=== PATIENT | female | born 2000 | race Caucasian/White ===

== ENCOUNTER 2020-03-31 20:42 | Emergency (ER) | payer OTHER, SELFPAY ==
[2020-03-31 21:04] VITALS: BP 107/61; PULSE 100; RESP 16; TEMP 36.8; O2SAT 96; BMI 21.2
[2020-03-31 21:50] VITALS: BP 118/34; PULSE 73; RESP 16; TEMP 37.1; O2SAT 9
[2020-03-31 21:57] LABS: Basophils Percent Auto 0.4 % (0-2); Eosinophils Absolute Auto 0.1 X10*3/uL (0.0-0.4); Eosinophils Percent Auto 0.7 % (0-4); Hemoglobin 13.7 g/dl (12.0-16.0); Imm Gran Abs Auto 0.02 X10*3/uL (0.00-0.03); Imm Gran Pct Auto 0.3 % (0.0-0.4); Lymphocytes Absolute Auto 1.4 X10*3/uL (1.2-4.9); Lymphocytes Percent Auto 18.5 % (20-40); Mean Corpuscular HGB Conc 34.3 g/dl (31.0-35.0); Mean Corpuscular Hemoglobin 30.1 pg (27.0-33.0); Mean Corpuscular Volume 87.9 fL (80-98); Mean Platelet Volume 10.2 fL (9.4-12.3); Monocytes Absolute Auto 0.5 X10*3/uL (0.1-1.2); Neutrophils Absolute Auto 5.6 X10*3/uL (2.0-8.3); Neutrophils Percent Auto 73.1 % (45-73); Platelet Count 200 X10*3/uL (160-400); Red Blood Count 4.55 X10*6/uL (4.20-5.50); Red Cell Distribution Width 12.6 % (11.0-16.0); White Blood Count 7.7 X10*3/uL (4.8-10.8)
[2020-03-31 21:58] LABS: MANUAL DIFF FLAG NO
[2020-03-31 22:22] LABS: Alanine Aminotransferase 18 U/L (0-31); Albumin Level 4.6 g/dL (3.5-5.0); Alkaline Phosphatase 38 U/L (39-117); Anion Gap 17 (12-20); Aspartate Amino Transferase 21 U/L (5-31); Blood Urea Nitrogen 15 mg/dL (9-16); Calcium 9.4 mg/dL (8.4-10.2); Carbon Dioxide 22 mmol/L (22-29); Chloride 102 mmol/L (96-108); Estimated Glomerular Filt Rate > 60; Glucose Random 90 mg/dL (60-115); Potassium 3.7 mmol/l (3.3-5.1); Sodium 137 mmol/L (135-145); Total Protein 7.5 g/dL (6.5-8.0)
--- NOTE | 2020-04-01 00:43 | ED.NAVMDI ---
HPI - Nausea/Vomiting/Diarrhea General Chief complaint: Nausea/Vomiting/Diarrhea Stated complaint: vomiting, Time Seen by Provider: 04/01/20 00:40 Source: patient Mode of arrival: ambulatory Limitations: no limitations History of Present Illness HPI Narrative: Patient approximately 6 weeks primi, diagnosed today at urgent care center for vomiting for last 24 hours will take anything down went to urgent care center they checked the urine and she was positive for . Patient vomited about 15 times all day today feels weak no diarrhea no abdominal pain MD elicited complaint: nausea and vomiting Onset (ago): day(s) (1) Related Data Previous Rx's Medication Instructions Recorded ondansetron 4 mg PO Q6-8H PRN #20 tab 04/01/20 Allergies Allergy/AdvReac Type Severity Reaction Status Date / Time No Known Allergies Allergy Unverified 12/04/19 16:54 [No Known Allergies*] Review of Systems Review of Systems: Constitutional : No Weight loss, No Fever, No Chills ENT/Mouth : No sore throat, No Rhinorrhea Eyes: No Eye Pain, No Swelling Cardiovascular : No Chest Pain, no palpitations Respiratory : No Cough, No Sputum, no shortness of breath Gastrointestinal No Diarrhea, No abdominal Pain, no black stools Genitourinary : No Dysuria, No Urinary Frequency no vaginal bleed Musculoskeletal : No joint pain, No Myalgias, No Joint Swelling Skin : No Skin Lesions, No rash Neuro : No Weakness, No Numbness, No Dizziness, No Headache Psych : No Anxiety/Panic, No Depression Heme/Lymph: No Bruising, No Lymphadenopathy Endocrine : No Polyuria, No Polydipsia All other systems reviewed and are negative PMFSH Social History Social History Advance Directives: No Advance Directives Information Provided: No Physical Exam Vital Signs: Vital Signs: Last Vital Signs Temp 98.7 F 03/31/20 21:50 Pulse 73 03/31/20 21:50 Resp 16 03/31/20 21:50 BP 118/34 L 03/31/20 21:50 Pulse Ox 9 L 03/31/20 21:50 Body Mass Index 21.2 Appearance: Alert. Oriented X3. No acute distress. Eyes: Pupils equal, round and reactive to light. ENT: Pharynx normal. Moist oral mucosa Neck: Normal inspection. Neck supple. CVS: Normal heart rate and rhythm. Pulses normal. Respiratory: No respiratory distress. Breath sounds normal. Abdomen: Soft and nontender. Bowel sounds are present, no mass palpable, no CVA tenderness Skin: Skin warm and dry. Normal skin color. Normal skin turgor. Extremities: No lower extremity edema. Neuro: Oriented X 3. No motor deficit. No sensory deficit. MDM - Nausea/Vomiting/Diarrhea MDM Narrative Medical decision making narrative: Patient 1st first-trimester with vomiting labs look stable, urine shows ketones, will give IV fluids and IV Zofran patient feels better taking p.o. fluids now Lab Data Attestation: I reviewed the patient's lab results. Result diagrams: 04/01/20 01:16 03/31/20 21:49 Labs: Lab Results 03/31/20 03/31/20 04/01/20 Range/Units 21:49 21:49 01:16 WBC 7.7 10.3 (4.8-10.8) X10*3/uL RBC 4.55 4.52 (4.20-5.50) X10*6/uL Hgb 13.7 13.8 (12.0-16.0) g/dl Hct 40.0 39.8 (37-47) % MCV 87.9 88.1 (80-98) fL MCH 30.1 30.5 (27.0-33.0) pg MCHC 34.3 34.7 (31.0-35.0) g/dl RDW 12.6 12.5 (11.0-16.0) % Plt Count 200 207 (160-400) X10*3/uL MPV 10.2 10.1 (9.4-12.3) fL Immature Gran % (Auto) 0.3 0.3 (0.0-0.4) % Neut % (Auto) 73.1 H 87.1 H (45-73) % Lymph % (Auto) 18.5 L 7.9 L (20-40) % Brooks % (Auto) 7.0 4.4 (2-11) % Eos % (Auto) 0.7 0.0 (0-4) % Baso % (Auto) 0.4 0.3 (0-2) % Lymph # (Auto) 1.4 0.8 L (1.2-4.9) X10*3/uL Brooks # (Auto) 0.5 0.5 (0.1-1.2) X10*3/uL Eos # (Auto) 0.1 0.0 (0.0-0.4) X10*3/uL Baso # (Auto) 0.0 0.0 (0.0-0.2) X10*3/uL Abs Immat Gran (auto) 0.02 0.03 (0.00-0.03) X10*3/uL Absolute Neuts (auto) 5.6 8.9 H (2.0-8.3) X10*3/uL Absolute Nucleated RBC 0.000 0.000 (0.0-0.012) X10*3/uL Nucleated RBC % (auto) 0.0 0.0 (0.0-0.2) /100WBC Sodium 137 (135-145) mmol/L Potassium 3.7 (3.3-5.1) mmol/l Chloride 102 (96-108) mmol/L Carbon Dioxide 22 (22-29) mmol/L Anion Gap 17 (12-20) BUN 15 (9-16) mg/dL Creatinine 0.72 (0.5-1.4) mg/dL Estim Creat Clear Calc 104.0 Estimated GFR > 60 Random Glucose 90 (60-115) mg/dL Calcium 9.4 (8.4-10.2) mg/dL Total Bilirubin 1.0 (0.0-1.0) mg/dL AST 21 (5-31) U/L ALT 18 (0-31) U/L Alkaline Phosphatase 38 L (39-117) U/L Total Protein 7.5 (6.5-8.0) g/dL Albumin 4.6 (3.5-5.0) g/dL Urine Color Urine Appearance Urine pH (5.0-8.0) Ur Specific [place] (1.005-1.025) Urine Protein (NEG-TRACE) MG/DL Urine Glucose (UA) (NEG) MG/DL Urine Ketones (NEG) MG/DL Urine Blood (NEG) Urine Nitrite (NEG) Ur Leukocyte Esterase (NEG) Urine Test (NEGATIVE) 04/01/20 Range/Units 01:26 WBC (4.8-10.8) X10*3/uL RBC (4.20-5.50) X10*6/uL Hgb (12.0-16.0) g/dl Hct (37-47) % MCV (80-98) fL MCH (27.0-33.0) pg MCHC (31.0-35.0) g/dl RDW (11.0-16.0) % Plt Count (160-400) X10*3/uL MPV (9.4-12.3) fL Immature Gran % (Auto) (0.0-0.4) % Neut % (Auto) (45-73) % Lymph % (Auto) (20-40) % Brooks % (Auto) (2-11) % Eos % (Auto) (0-4) % Baso % (Auto) (0-2) % Lymph # (Auto) (1.2-4.9) X10*3/uL Brooks # (Auto) (0.1-1.2) X10*3/uL Eos # (Auto) (0.0-0.4) X10*3/uL Baso # (Auto) (0.0-0.2) X10*3/uL Abs Immat Gran (auto) (0.00-0.03) X10*3/uL Absolute Neuts (auto) (2.0-8.3) X10*3/uL Absolute Nucleated RBC (0.0-0.012) X10*3/uL Nucleated RBC % (auto) (0.0-0.2) /100WBC Sodium (135-145) mmol/L Potassium (3.3-5.1) mmol/l Chloride (96-108) mmol/L Carbon Dioxide (22-29) mmol/L Anion Gap (12-20) BUN (9-16) mg/dL Creatinine (0.5-1.4) mg/dL Estim Creat Clear Calc Estimated GFR Random Glucose (60-115) mg/dL Calcium (8.4-10.2) mg/dL Total Bilirubin (0.0-1.0) mg/dL AST (5-31) U/L ALT (0-31) U/L Alkaline Phosphatase (39-117) U/L Total Protein (6.5-8.0) g/dL Albumin (3.5-5.0) g/dL Urine Color PETER Urine Appearance HAZY Urine pH 6.0 (5.0-8.0) Ur Specific [place] >= 1.030 H (1.005-1.025) Urine Protein 1+ H (NEG-TRACE) MG/DL Urine Glucose (UA) NEG (NEG) MG/DL Urine Ketones >=80 (NEG) MG/DL Urine Blood NEG (NEG) Urine Nitrite NEG (NEG) Ur Leukocyte Esterase NEG (NEG) Urine Test POSITIVE H (NEGATIVE) Discharge Plan Discharge Clinical Impression: Hyperemesis gravidarum Patient Disposition: Home, Self-Care Instructions: Hyperemesis Gravidarum (ED) Additional Instructions: Drink plenty of fluids take medication for severe vomiting as advised. Follow-up with your PCP/Ob did Prescriptions: New ondansetron 4 mg tablet,disintegrating 4 mg PO Q6-8H PRN (Reason: Nausea And Vomiting) Qty: 20 RF: 0 Referrals: Delfino Chiu MD [Physician] - 1 week
[2020-04-01 01:20] LABS: MANUAL DIFF FLAG NO
[2020-04-01 01:21] LABS: Basophils Percent Auto 0.3 % (0-2); Hematocrit 39.8 % (37-47); Hemoglobin 13.8 g/dl (12.0-16.0); Imm Gran Abs Auto 0.03 X10*3/uL (0.00-0.03); Imm Gran Pct Auto 0.3 % (0.0-0.4); Lymphocytes Absolute Auto 0.8 X10*3/uL (1.2-4.9); Lymphocytes Percent Auto 7.9 % (20-40); Mean Corpuscular HGB Conc 34.7 g/dl (31.0-35.0); Mean Corpuscular Hemoglobin 30.5 pg (27.0-33.0); Mean Corpuscular Volume 88.1 fL (80-98); Mean Platelet Volume 10.1 fL (9.4-12.3); Monocytes Absolute Auto 0.5 X10*3/uL (0.1-1.2); Monocytes Percent Auto 4.4 % (2-11); Neutrophils Absolute Auto 8.9 X10*3/uL (2.0-8.3); Neutrophils Percent Auto 87.1 % (45-73); Platelet Count 207 X10*3/uL (160-400); Red Blood Count 4.52 X10*6/uL (4.20-5.50); Red Cell Distribution Width 12.5 % (11.0-16.0); White Blood Count 10.3 X10*3/uL (4.8-10.8)
[2020-04-01] MEDS: ondansetron HCL 4 MG/2 ML VIAL IVPUSH (01:22)
[2020-04-01 01:37] LABS: Appearance Urine HAZY; Color Urine AMBER; Glucose Urine UA NEG (NEG); Leukocyte Esterase Urine NEG (NEG); Nitrite Urine NEG (NEG); Specific Gravity - Urine >= 1.030 (1.005-1.025); Urine Blood NEG (NEG); Urine Ketones >=80 MG/DL (NEG); Urine Protein 1+ MG/DL (NEG-TRACE)
[2020-04-01 01:38] LABS: UPreg QC Valid YES; Urine Pregnancy POSITIVE (NEGATIVE)
[2020-04-01 01:56] LABS: Lipase 17 U/L (8-78)
[2020-04-01 01:59] LABS: Alanine Aminotransferase 18 U/L (0-31); Albumin Level 4.9 g/dL (3.5-5.0); Alkaline Phosphatase 38 U/L (39-117); Anion Gap 19 (12-20); Aspartate Amino Transferase 22 U/L (5-31); Bilirubin Direct 0.4 mg/dL (0.0-0.5); Bilirubin Total 0.9 mg/dL (0.0-1.0); Blood Urea Nitrogen 17 mg/dL (9-16); Calcium 9.6 mg/dL (8.4-10.2); Carbon Dioxide 22 mmol/L (22-29); Chloride 100 mmol/L (96-108); Creatinine Clr Calc Pharmacy 99.8; Estimated Glomerular Filt Rate > 60; Glucose Random 92 mg/dL (60-115); Potassium 3.5 mmol/l (3.3-5.1); Sodium 137 mmol/L (135-145)
[2020-04-01 01:59] LABS: Bacteria Urine 2+ /LPF; Mucus Urine 2+ /LPF; Squamous Epithelial Cell Urine 2+ /LPF
[2020-04-01 02:12] VITALS: BP 102/57; PULSE 68; RESP 16; O2SAT 100
[2020-04-01 02:29] LABS: HCG Quantitative 48814 mIU/mL
== END 2020-04-01 02:19 | disposition home or self-care (01) ==
PROVIDERS: Emergency Provider Internal Medicine
DX: O21.0 Mild hyperemesis gravidarum (principal); Z3A.01 Less than 8 weeks gestation of pregnancy
CPT/HCPCS: 36415; 80048; 80053; 80076; 81001; 81025; 83690; 84702; 85025; 96374; 99284; J2405

== ENCOUNTER → 2020-04-15 13:17 | Outpatient (BNVA) | payer OTHER, SELFPAY | PROVIDERS: PCP Internal Medicine Pulmonary Disease; Visit Provider Advanced Practice Midwife | DX: Z34.90 Encounter for supervision of normal pregnancy, unspecified, unspecified trimester (principal) | CPT/HCPCS: 99211 ==

== ENCOUNTER 2020-04-16 13:11 | Outpatient (REF) | payer OTHER, SELFPAY ==
--- NOTE | 2020-04-16 13:22 | US_ITS ---
EXAMINATION: OBSTETRICAL ULTRASOUND, FIRST TRIMESTER HISTORY: 19-year-old with secondary amenorrhea LMP: Unknown COMPARISON: 06/28/2017 TECHNIQUE: Real time transabdominal imaging with color and M-mode Doppler. FINDINGS: A single, live IUP CRL of 17.9 mm c/w 8.2wks is noted. Heart Rate: 170 beats per minute. Right ovary is within normal limits. Left ovary was not visible. GESTATIONAL AGE: 1. GA from LMP: N/A wks 2. GA from AUA: 8.2 wks ESTIMATED DATE OF DELIVERY: 1. CIARAN from LMP: N/A/ 2. CIARAN from AUA: 11/24/2020 US/US OB <= 14 weeks fetus IMPRESSION: 1. A single live IUP 2. CRL is consistent with 8 weeks and 2 days giving her an CIARAN of 11/24/2020. 3. Normal right ovary. Left ovary was not seen. 4. No free fluid in the cul-de-sac
== END 2020-04-16 13:12 | disposition home or self-care (01) ==
LOC: HO.US 13:11
PROVIDERS: Visit Provider Advanced Practice Midwife
DX: Z34.90 Encounter for supervision of normal pregnancy, unspecified, unspecified trimester (principal)
CPT/HCPCS: 76801

== ENCOUNTER → 2020-04-30 10:07 | Outpatient (BNVA) | payer OTHER, SELFPAY | PROVIDERS: Visit Provider Advanced Practice Midwife | CPT/HCPCS: 99212 ==

== ENCOUNTER 2020-05-07 10:21 | Outpatient (REF) | payer OTHER, SELFPAY ==
--- NOTE | ~2020-05-07 | US_ITS ---
EXAMINATION: OBSTETRICAL ULTRASOUND, FIRST TRIMESTER HISTORY: 19-year-old at 11.2 weeks of gestation NT screening COMPARISON: 04/16/2020 TECHNIQUE: Real time transabdominal imaging with color and M-mode Doppler. FINDINGS: A single, live IUP CRL of 48.5 mm c/w 11.5wks is noted. Heart Rate: 161 beats per minute. Normal yolk sac seen. NT was 0.9.mm. NB Present The embryo appears sonographically wnl for this GA. Both maternal ovaries are seen and appear normal. GESTATIONAL AGE: 1. Established GA: 11.2 wks 2. GA from AUA: 11.5 wks ESTIMATED DATE OF DELIVERY: 1. Established CIARAN: 11/24/2020 2. CIARAN from A: 11/21/2020 US/US OB 1T nuc measure IMPRESSION: 1. Single live IUP 2. Size equals dates 3. NT of the 0.9 mm 4. Small subchorionic hematoma MFM Consultation: I reviewed the ultrasound findings along with significance of NT measurement. The NT of less than 3mm is generally reassuring. However, the sensitivity for T21 detection is only 60%. I reviewed the availability of serum aneuploidy screening which includes cell-free DNA and placental protein based tests. I discussed the sensitivity, false-positive rate, and other limitations associated with each test. I also reviewed the availability of invasive diagnostic tests that are associated small but definite risk of miscarriage. We also reviewed the differences between screening tests and diagnostic tests. After our discussion, she opted for the First trimester screening that is based on cell-free DNA or non-invasive testing (NIPT). The result will be faxed to your office in approximately 7 days. A follow up at 18 weeks for survey has been scheduled. Thank you very much for this referral. Majority of this visit was spent reviewing her care and counselling her in face to face time: Time spent 20 min.
[2020-05-07 11:53] LABS: Basophils Percent Auto 0.4 % (0-2); Eosinophils Absolute Auto 0.3 X10*3/uL (0.0-0.4); Eosinophils Percent Auto 3.1 % (0-4); Hematocrit 35.4 % (37-47); Hemoglobin 12.2 g/dl (12.0-16.0); Imm Gran Abs Auto 0.03 X10*3/uL (0.00-0.03); Imm Gran Pct Auto 0.4 % (0.0-0.4); Lymphocytes Absolute Auto 1.3 X10*3/uL (1.2-4.9); Lymphocytes Percent Auto 16.6 % (20-40); MANUAL DIFF FLAG NO; Mean Corpuscular HGB Conc 34.5 g/dl (31.0-35.0); Mean Corpuscular Hemoglobin 30.2 pg (27.0-33.0); Mean Corpuscular Volume 87.6 fL (80-98); Mean Platelet Volume 10.2 fL (9.4-12.3); Monocytes Absolute Auto 0.5 X10*3/uL (0.1-1.2); Monocytes Percent Auto 6.5 % (2-11); Neutrophils Absolute Auto 5.8 X10*3/uL (2.0-8.3); Platelet Count 194 X10*3/uL (160-400); Red Blood Count 4.04 X10*6/uL (4.20-5.50); Red Cell Distribution Width 13.2 % (11.0-16.0); White Blood Count 7.9 X10*3/uL (4.8-10.8)
[2020-05-07 13:24] LABS: Syphilis Screen Nonreactive (Nonreactive)
[2020-05-07 14:53] LABS: Amphetamine Screen Urine Not Detected (Not Detect); Barbiturates, Urine Not Detected (Not Detect); Benzodiazepines Screen Urine Not Detected (Not Detect); Cannabinoid Screen Urine POSITIVE (Not Detect); Cocaine Screen Urine Not Detected (Not Detect); Opiate Screen Urine Not Detected (Not Detect); Phencyclidine Screen Urine Not Detected (Not Detect)
[2020-05-08 08:16] LABS: Rubella IgG Antibody 8.64 Index
[2020-05-08 08:42] LABS: Varicella IgG Antibody <135.00 index
[2020-05-10 03:52] LABS: HIV AB/AG Nonreactive (Nonreactive); HIV Num 1 0.07 S/CO (0.00-0.99); ~Hepatitis C Antibody Nonreactive (Nonreactive)
[2020-05-10 03:56] LABS: HBsAGNum1 0.13 S/CO (0.00-0.99); Hepatitis B Surface Antigen Negative (Negative)
== END 2020-05-07 10:22 | disposition home or self-care (01) ==
LOC: HO.US 10:21
PROVIDERS: Visit Provider Advanced Practice Midwife
DX: Z36.82 Encounter for antenatal screening for nuchal translucency (principal); Z34.90 Encounter for supervision of normal pregnancy, unspecified, unspecified trimester; Z3A.11 11 weeks gestation of pregnancy
CPT/HCPCS: 76813; 80307; 85025; 86762; 86780; 86787; 86803; 86850; 86900; 86901; 87086; 87340; 87389

== ENCOUNTER 2020-05-14 08:09 | Outpatient (REF) | payer OTHER, SELFPAY ==
[2020-05-15 16:57] LABS: C. trachomatis RNA TMA NOT DETECTED (NOT DETECTED); N. gonorrhoeae RNA TMA NOT DETECTED (NOT DETECTED)
== END 2020-05-14 08:10 | disposition home or self-care (01) ==
LOC: HO.LAB 08:09
PROVIDERS: Visit Provider Advanced Practice Midwife
DX: Z34.01 Encounter for supervision of normal first pregnancy, first trimester (principal)
CPT/HCPCS: 36415; 81003; 87491; 87591; 99212

== ENCOUNTER 2020-05-22 14:30 | Emergency (ER) | payer OTHER, SELFPAY ==
[2020-05-22 14:37] VITALS: BP 113/63; BP 120/60; PULSE 82; PULSE 92; RESP 14; TEMP 36.8; O2SAT 100; O2SAT 98; BMI 18.8
--- NOTE | 2020-05-22 15:16 | ECG_ITS ---
Test Reason : SYNCOPY Blood Pressure : / mmHG Vent. Rate : 065 BPM Atrial Rate : 065 BPM P-R Int : 158 ms QRS Dur : 082 ms QT Int : 388 ms P-R-T Axes : 062 087 053 degrees QTc Int : 403 ms Normal sinus rhythm with sinus arrhythmia Normal ECG No previous ECGs available Referred By: Mansi Cobian Electronically Signed By:KEYA MENA
--- NOTE | 2020-05-22 15:35 | ED.SYNCOPE ---
HPI - Syncope General Chief Complaint: Syncope Stated Complaint: NEAR SYNCOPE, POC 68 Time Seen by Provider: 05/22/20 14:48 Source: patient and EMS Mode of arrival: EMS History of Present Illness HPI narrative: 19-year-old female at 13 weeks gestation BIBA for near syncopal episode at work [employer]. 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 Admits to similar episodes in the past when does not enough food. Reports eating cinnamon buns this morning, however nothing since. Reports symptomatic improvement at present. Admits to mild headache, denies visual change/loss now, CP/SOB, abdominal pain, nausea/vomiting, vaginal bleeding, vaginal discharge, dysuria/hematuria MD complaint: felt faint Onset (ago): hour(s) Related Data Previous Rx's Medication Instructions Recorded ondansetron 4 mg PO Q6-8H PRN #20 tab 04/01/20 vitamins with calcium 1 tab PO DAILY 30 Days #30 tab 04/15/20 no.72-iron 29 mg-folic acid 1 mg tablet Allergies Allergy/AdvReac Type Severity Reaction Status Date / Time No Known Allergies Allergy Verified 05/14/20 08:19 [No Known Allergies*] Review of Systems Review of Systems: Constitutional: No Fever, No Chills Eyes: + Vision Changes (resolved) Cardiovascular: No Chest Pain, No SOB Respiratory: No Cough Gastrointestinal: No Nausea, No Vomiting, No Diarrhea, No Constipation, No Abdominal pain Genitourinary: No irregular bleeding, No Dysuria, No Urinary Frequency, No Hematuria Musculoskeletal: No joint pain, No Myalgias, No Joint Swelling Skin: No Skin Lesions, No rash Neuro: No Weakness, No Loss of Consciousness, +lightheadedness, +mild Headache Yes all other systems are reviewed and are negative [facility] Past Medical History Attestation statement: The following information was validated with the patient. Medical History (Updated 05/22/20 @ 16:03 by ROCHELLE Gates) No significant past medical history Family History Family History Maternal Grandmother No problems noted. Maternal Grandfather Cancer Social History Social History Household Members: Significant Other and Family Alcohol intake: never Smoking Status: Never smoker Use of substances other than those prescribed or required for medical reasons: Yes Substance Use Type: Marijuana Last Used Substance: Weeks (ago) Advance Directives: No Advance Directives Information Provided: Yes Physical Exam Vital Signs: Vital Signs: Last Vital Signs Temp 98.2 F 05/22/20 14:37 Pulse 82 05/22/20 14:37 Resp 14 05/22/20 14:37 BP 113/63 05/22/20 14:37 Pulse Ox 98 05/22/20 14:37 Body Mass Index 18.8 Const: General: cooperative, healthy appearing, comfortable, no acute distress, well developed, alert and awake Orientation/consciousness: patient oriented x3 Limitations: no limitations HENMT: Head: Yes normal to inspection Ears: hearing grossly normal bilaterally General nose exam: Normal external nose present Face and sinus: Yes normal facial exam Eyes: General: appearance normal, both eyes and all related structures Pupils: Dilated pupils bilaterally and reactive EOM: EOMs intact bilaterally Neck: Neck: Yes normal visual inspection and Yes no meningeal signs Resp: Effort & Inspection: normal respiratory effort Auscultation: clear to auscultation bilaterally, no rales, no rhonchi and no wheezes Cardio: Rate: regular rate Heart sounds: S1 normal heart sound present and S2 normal heart sound present GI: Inspection: Yes normal to inspection Palpation (GI): Soft to palpation, nontender, no guarding and not rigid : General: Yes no CVA tenderness Back/Spine/Pelvis: Back: no CVA tenderness Skin: Rashes: no rashes Wounds: no wounds Neuro: General: patient oriented x3, tone normal, moves all extremities, no meningeal signs, no focal motor deficits and CN's II-XI intact bilaterally Gait exam (Neuro): Normal gait present Motor exam (neuro): 5/5 motor strength present throughout, Pronator motor function not present and no tremor noted Coordination: [id number] test normal and Romberg test negative Extrem: General: Yes normal to inspection, Yes no pedal edema and Yes no calf tenderness Course Course Course Narrative: -no leukocytosis. H&H stable. Troponin negative -UA negative, no ketones -1700--ED care transferred to WIRE LOOP MACHINE OPERATOR Sweetie pending remaining labs orthostatic vital signs, and re-evaluation MDM - Syncope MDM Narrative Medical decision making narrative: 19-year-old female at 13 weeks gestation BIBA for near syncopal episode at work [employer]. 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 On exam VSS, NAD/well-appearing, reports symptomatic improvement present, no focal neuro deficits, abdomen soft/nontender. Denies related complaints. Concern for vasovagal near syncope/dehydration. Rule out metabolic abnormalities. Unlikely PE/ACS Plan: EKG, labs, UA, IVF, orthostatics, re-evaluation Differential Diagnosis Differential diagnosis: Likely syncope due to orthostatic hypotension, vasovagal syncope and dehydration Medical Records Attestation: I reviewed the patient's medical records. Lab Data Attestation: I reviewed the patient's lab results. Result diagrams: 05/22/20 15:39 05/22/20 15:39 Labs: Lab Results 05/22/20 05/22/20 05/22/20 Range/Units 15:27 15:27 15:39 WBC 8.8 (4.8-10.8) X10*3/uL RBC 3.84 L (4.20-5.50) X10*6/uL Hgb 11.7 L (12.0-16.0) g/dl Hct 34.6 L (37-47) % MCV 90.1 (80-98) fL MCH 30.5 (27.0-33.0) pg MCHC 33.8 (31.0-35.0) g/dl RDW 13.8 (11.0-16.0) % Plt Count 173 (160-400) X10*3/uL MPV 10.7 (9.4-12.3) fL Immature Gran % (Auto) 0.3 (0.0-0.4) % Neut % (Auto) 75.9 H (45-73) % Lymph % (Auto) 14.5 L (20-40) % Johnson % (Auto) 6.6 (2-11) % Eos % (Auto) 2.4 (0-4) % Baso % (Auto) 0.3 (0-2) % Lymph # (Auto) 1.3 (1.2-4.9) X10*3/uL Johnson # (Auto) 0.6 (0.1-1.2) X10*3/uL Eos # (Auto) 0.2 (0.0-0.4) X10*3/uL Baso # (Auto) 0.0 (0.0-0.2) X10*3/uL Abs Immat Gran (auto) 0.03 (0.00-0.03) X10*3/uL Absolute Neuts (auto) 6.7 (2.0-8.3) X10*3/uL Absolute Nucleated RBC 0.000 (0.0-0.012) X10*3/uL Nucleated RBC % (auto) 0.0 (0.0-0.2) /100WBC Hold Blue Top Troponin I High Sens (<3.5-17.0) ng/L Urine Color YELLOW Urine Appearance HAZY Urine pH 5.5 (5.0-8.0) Ur Specific [place] >= 1.030 H (1.005-1.025) Urine Protein NEG (NEG-TRACE) MG/DL Urine Glucose (UA) NEG (NEG) MG/DL Urine Ketones NEG (NEG) MG/DL Urine Blood NEG (NEG) Urine Nitrite NEG (NEG) Ur Leukocyte Esterase NEG (NEG) Urine Opiates Screen Not Detected (Not Detect) Ur Barbiturates Screen Not Detected (Not Detect) Ur Phencyclidine Scrn Not Detected (Not Detect) Ur Amphetamines Screen Not Detected (Not Detect) U Benzodiazepines Scrn Not Detected (Not Detect) Urine Cocaine Screen Not Detected (Not Detect) U Marijuana (THC) Screen Not Detected (Not Detect) 05/22/20 05/22/20 Range/Units 15:39 15:39 WBC (4.8-10.8) X10*3/uL RBC (4.20-5.50) X10*6/uL Hgb (12.0-16.0) g/dl Hct (37-47) % MCV (80-98) fL MCH (27.0-33.0) pg MCHC (31.0-35.0) g/dl RDW (11.0-16.0) % Plt Count (160-400) X10*3/uL MPV (9.4-12.3) fL Immature Gran % (Auto) (0.0-0.4) % Neut % (Auto) (45-73) % Lymph % (Auto) (20-40) % Johnson % (Auto) (2-11) % Eos % (Auto) (0-4) % Baso % (Auto) (0-2) % Lymph # (Auto) (1.2-4.9) X10*3/uL Johnson # (Auto) (0.1-1.2) X10*3/uL Eos # (Auto) (0.0-0.4) X10*3/uL Baso # (Auto) (0.0-0.2) X10*3/uL Abs Immat Gran (auto) (0.00-0.03) X10*3/uL Absolute Neuts (auto) (2.0-8.3) X10*3/uL Absolute Nucleated RBC (0.0-0.012) X10*3/uL Nucleated RBC % (auto) (0.0-0.2) /100WBC Hold Blue Top SEE NOTE Troponin I High Sens < 3.5 (<3.5-17.0) ng/L Urine Color Urine Appearance Urine pH (5.0-8.0) Ur Specific [place] (1.005-1.025) Urine Protein (NEG-TRACE) MG/DL Urine Glucose (UA) (NEG) MG/DL Urine Ketones (NEG) MG/DL Urine Blood (NEG) Urine Nitrite (NEG) Ur Leukocyte Esterase (NEG) Urine Opiates Screen (Not Detect) Ur Barbiturates Screen (Not Detect) Ur Phencyclidine Scrn (Not Detect) Ur Amphetamines Screen (Not Detect) U Benzodiazepines Scrn (Not Detect) Urine Cocaine Screen (Not Detect) U Marijuana (THC) Screen (Not Detect) ECG Data Attestation: I personally reviewed and interpreted this ECG as follows: ECG interpretation date: 05/22/20 ECG interpretation time: 15:23 Interpretation: EKG normal sinus rhythm with a rate of 65. No STEMI. Nonischemic Discharge Plan Discharge Clinical Impression: Near syncope Instructions: Near Syncope (ED) Additional Instructions: Your blood work was reassuring today in the ED It is important that you are staying hydrated at home and drinking plenty of fluids, and eating plenty of meals. Eat small meals more frequently throughout the day. Follow-up with her OBGYN If you develop abdominal pain, vaginal bleeding, vaginal discharge, pass out, chest pain, or shortness of breath return to the ED immediately Prescriptions: No Action ondansetron 4 mg tablet,disintegrating 4 mg PO Q6-8H PRN (Reason: Nausea And Vomiting) Qty: 20 RF: 0 Plus 29 mg iron- 1 mg tablet 1 tab PO DAILY 30 Days Qty: 30 RF: 11 Referrals: Janel Gray CNM [Certified Nurse [employer]] - 2 days
[2020-05-22 15:39] LABS: Glucose Urine UA NEG (NEG); Leukocyte Esterase Urine NEG (NEG); Nitrite Urine NEG (NEG); PH 5.5 (5.0-8.0); Specific Gravity - Urine >= 1.030 (1.005-1.025); Urine Blood NEG (NEG); Urine Ketones NEG (NEG); Urine Protein NEG (NEG-TRACE)
[2020-05-22 15:45] LABS: MANUAL DIFF FLAG NO
[2020-05-22 15:45] LABS: Appearance Urine HAZY; Color Urine YELLOW
[2020-05-22 15:48] LABS: Basophils Percent Auto 0.3 % (0-2); Eosinophils Absolute Auto 0.2 X10*3/uL (0.0-0.4); Eosinophils Percent Auto 2.4 % (0-4); Hematocrit 34.6 % (37-47); Hemoglobin 11.7 g/dl (12.0-16.0); Imm Gran Abs Auto 0.03 X10*3/uL (0.00-0.03); Imm Gran Pct Auto 0.3 % (0.0-0.4); Lymphocytes Absolute Auto 1.3 X10*3/uL (1.2-4.9); Lymphocytes Percent Auto 14.5 % (20-40); Mean Corpuscular HGB Conc 33.8 g/dl (31.0-35.0); Mean Corpuscular Hemoglobin 30.5 pg (27.0-33.0); Mean Corpuscular Volume 90.1 fL (80-98); Mean Platelet Volume 10.7 fL (9.4-12.3); Monocytes Absolute Auto 0.6 X10*3/uL (0.1-1.2); Monocytes Percent Auto 6.6 % (2-11); Neutrophils Absolute Auto 6.7 X10*3/uL (2.0-8.3); Neutrophils Percent Auto 75.9 % (45-73); Platelet Count 173 X10*3/uL (160-400); Red Blood Count 3.84 X10*6/uL (4.20-5.50); Red Cell Distribution Width 13.8 % (11.0-16.0); White Blood Count 8.8 X10*3/uL (4.8-10.8)
[2020-05-22] MEDS: 0.9 % Sodium Chloride 1,000 ML 999 ML IVCONT (15:48)
[2020-05-22 16:36] LABS: Troponin-I High Sensitivity < 3.5 ng/L (<3.5-17.0)
[2020-05-22 16:42] LABS: Amphetamine Screen Urine Not Detected (Not Detect); Barbiturates, Urine Not Detected (Not Detect); Benzodiazepines Screen Urine Not Detected (Not Detect); Cannabinoid Screen Urine Not Detected (Not Detect); Cocaine Screen Urine Not Detected (Not Detect); Opiate Screen Urine Not Detected (Not Detect); Phencyclidine Screen Urine Not Detected (Not Detect)
[2020-05-22 17:11] LABS: Anion Gap 12 (12-20); Blood Urea Nitrogen 9 mg/dL (9-16); Calcium 7.9 mg/dL (8.4-10.2); Carbon Dioxide 23 mmol/L (22-29); Chloride 106 mmol/L (96-108); Estimated Glomerular Filt Rate > 60; Glucose Random 65 mg/dL (60-115); Magnesium 1.7 mg/dL (1.6-2.6); Potassium 3.6 mmol/L (3.3-5.1); Sodium 137 mmol/L (135-145)
[2020-05-22 17:29] VITALS: BP 96/53; PULSE 69
--- NOTE | 2020-05-22 17:29 | PC.NURSE ---
confirmed HCG is able to be tested off specimen sample sent down, awaiting results.
[2020-05-22 17:30] VITALS: BP 98/60; PULSE 74
[2020-05-22 17:31] VITALS: BP 102/60; PULSE 73
[2020-05-22 17:32] VITALS: BP 102/60; PULSE 72; RESP 15; TEMP 36.7; O2SAT 99
== END 2020-05-22 18:24 | disposition home or self-care (01) ==
PROVIDERS: Physician Assistant; Emergency Provider Internal Medicine
DX: O26.891 Other specified pregnancy related conditions, first trimester (principal); R55 Syncope and collapse; Z3A.13 13 weeks gestation of pregnancy; O99.321 Drug use complicating pregnancy, first trimester; F12.90 Cannabis use, unspecified, uncomplicated
CPT/HCPCS: 36415; 80048; 80307; 81003; 83735; 84484; 84702; 85025; 93005; 96360; 99284

== ENCOUNTER → 2020-06-15 08:57 | Outpatient (BNVA) | payer OTHER, SELFPAY | PROVIDERS: Visit Provider Advanced Practice Midwife | DX: Z34.02 Encounter for supervision of normal first pregnancy, second trimester (principal); Z3A.17 17 weeks gestation of pregnancy | CPT/HCPCS: 81003 ==

== ENCOUNTER 2020-06-25 10:32 | Outpatient (REF) | payer OTHER, SELFPAY ==
--- NOTE | ~2020-06-25 | US_ITS ---
EXAMINATION: US OBSTETRICAL CLINICAL INFORMATION: 19-year-old at 18.2 weeks of gestation Suspected anomaly COMPARISON: 05/07/2020 TECHNIQUE: Real-time transabdominal ultrasound was performed using C1-5 megahertz transducer. FINDINGS: A single, active, fetus is seen in vertex presentation. The placenta is posterior without previa, and the amniotic fluid volume is wnl. MEASUREMENTS: 1. Biparietal Diameter: 4.2 cm; 18.5 wks 2. Occipital Frontal Diameter: 5.4 cm 3. Head Circumference: 15.7 cm; 18.5 wks 4. Abdominal Circumference: 13.2 cm; 18.6 wks 5. Femur Length: 2.6 cm; 18.0 wks 6. Humerus Length: 2.7 cm; 18.5 wks 7. Tibia Length: 2.3 cm; 18.1 wks 8. Ulna Length: 2.3 cm; 18.1 wks 9. Lateral ventricle: 0.61 cm 10. Cerebellum: 1.82 cm; 19.0 wks 11. Cisterna Magna: 0.36 cm 12. Nuchal Fold: 2.8 mm 13. Heart Rate: 139 beats per minute Rt ovary: normal Lt ovary: normal Cervical length 4.1 cm on T/A. GESTATIONAL AGE: 1. Established GA: 18.2 wks 2. GA from [facility]: 18.4 wks ESTIMATED DATE OF DELIVERY: 1. Established CIARAN: 11/24/2020 2. CIARAN from [facility]: 11/22/2020 ANATOMY: The visualized anatomy includes but not limited to: 1. Cranium: Normal 2. Intracranial anatomy: cavum septum pellucidi, lateral ventricles, choroid plexus, cerebellum, posterior fossa, third and fourth ventricles. 3. face: orbits, lip/palate, profile, nasal bone 4. Heart: four-chamber view of the heart, ventricular septum, foramen ovale, pulmonary vein, left and right outflow tracts, three-vessel view, 3 vessel trachea view, aortic and ductal arches, situs.. 5. Diaphragm: Normal 6. Abdominal wall: Normal 7. Cord Insertion: Normal 8. Spine: Cervical, thoracic, lumbar, sacral. 9. Stomach: Normal size and shape 10. Right Kidney: Normal 11. Left Kidney: Normal 12. 3 vessel cord: Normal 13. Upper extremity: Open hands, fifth digit. 14. Lower extremity: Tibia, fibula, bilateral feet. 15. Bladder: Normal 16. Genitalia: Female, patient aware US/US OB /maternal detail IMPRESSION: 1. Single, living, intrauterine with appropriate biometry. 2. Normal survey DISCUSSION: I reviewed today's ultrasound findings. We discussed the limitations of ultrasound in diagnosing aneuploidy and other congenital abnormalities. I reviewed the differences between screening test and diagnostic test. Amniocentesis was discussed and declined. She was informed that the baseline incidence of congenital abnormalities is approximately 3-5%. Not all these conditions are diagnosable in utero. RECOMMENDATIONS: 1. Additional ultrasound has not been scheduled. Thank you for allowing me to participate in her care. Total time 20 minutes. The time spent was devoted to counseling the patient about the disease and diagnosis, coordinating care including reviewing her records, pertinent lab data and studies, as well as discussing diagnostic evaluation and workup, plan therapeutic interventions and future disposition of care. This includes any additional research needed to obtain further information in formulating the plan of care of this patient. This note was generated with a voice recognition program. Please excuse any errors which may have been overlooked during my review of this note. Sometimes these errors may affect the content or meaning of a given sentence.
== END 2020-06-25 10:33 | disposition home or self-care (01) ==
LOC: HO.US 10:32
PROVIDERS: Visit Provider Advanced Practice Midwife
DX: Z34.02 Encounter for supervision of normal first pregnancy, second trimester (principal)
CPT/HCPCS: 76811

== ENCOUNTER → 2020-07-13 08:46 | Outpatient (BNVA) | payer OTHER, SELFPAY | PROVIDERS: Visit Provider Advanced Practice Midwife | DX: Z34.02 Encounter for supervision of normal first pregnancy, second trimester (principal); Z3A.21 21 weeks gestation of pregnancy | CPT/HCPCS: 81003; 99212 ==

== ENCOUNTER 2020-08-10 08:41 | Outpatient (REF) | payer OTHER, SELFPAY ==
[2020-08-10 11:02] LABS: Glucose 1 Hour PP 50gm Dose 72 mg/dL (60-140)
[2020-08-10 11:10] LABS: Hematocrit 31.6 % (37-47); Hemoglobin 10.4 g/dl (12.0-16.0); Mean Corpuscular HGB Conc 32.9 g/dl (31.0-35.0); Mean Corpuscular Hemoglobin 30.3 pg (27.0-33.0); Mean Corpuscular Volume 92.1 fL (80-98); Mean Platelet Volume 10.4 fL (9.4-12.3); Platelet Count 180 X10*3/uL (160-400); Red Blood Count 3.43 X10*6/uL (4.20-5.50); Red Cell Distribution Width 13.2 % (11.0-16.0); White Blood Count 10.3 X10*3/uL (4.8-10.8)
[2020-08-11 08:03] LABS: Syphilis Screen Nonreactive (Nonreactive)
== END 2020-08-10 08:42 | disposition home or self-care (01) ==
LOC: HO.LAB 08:41
PROVIDERS: Visit Provider Advanced Practice Midwife
DX: O99.342 Other mental disorders complicating pregnancy, second trimester (principal); F41.9 Anxiety disorder, unspecified; Z3A.25 25 weeks gestation of pregnancy
CPT/HCPCS: 36415; 81003; 85027; 86780; 99212

== ENCOUNTER → 2020-08-31 08:39 | Outpatient (BNVA) | payer OTHER, SELFPAY | PROVIDERS: Visit Provider Advanced Practice Midwife | DX: O36.5930 Maternal care for other known or suspected poor fetal growth, third trimester, not applicable or unspecified (principal); Z13.31 Encounter for screening for depression; Z3A.28 28 weeks gestation of pregnancy | CPT/HCPCS: 81003; 99212 ==

== ENCOUNTER 2020-09-03 10:03 | Outpatient (REF) | payer OTHER, SELFPAY ==
--- NOTE | ~2020-09-03 | US_ITS ---
EXAMINATION: OBSTETRICAL ULTRASOUND, Follow up HISTORY: 20-year-old at the 28.3 weeks of gestation Size date discrepancy COMPARISON: 06/25/2020 TECHNIQUE: Real time transabdominal imaging with color and M-mode Doppler. PRESENTATION: Vertex PLACENTA LOCATION: Posterior without previa AMNIOTIC FLUID: D CARBON PASTE MIXER OPERATOR 5.2 cm MEASUREMENTS: 1. Biparietal Diameter: 7.0 cm; 28.1 wks 2. Head Circumference: 27.3 cm; 29.6 wks 3. Abdominal Circumference: 23.5 cm; 27.6 wks 4. Femur Length: 5.2 cm; 27.6 wks 5. Heart Rate: 163 beats per minute WEIGHT: EFW: 1116 2 grams (2 lbs 9 oz) -- 28 %. GESTATIONAL AGE: 1. Established GA: 28.2 wks 2. GA from AUA: 20.3 wks ESTIMATED DATE OF DELIVERY: 1. Established CIARAN: 12/14/2020 2. CIARAN from AUA: 11/23/2020 US/US OB follow up IMPRESSION: 1. A single active fetus is in vertex presentation 2. Size equals dates 3. Normal amniotic fluid volume Thank you very much for this referral. This note was generated with a voice recognition program. Please excuse any errors which may have been overlooked during my review of this note. Sometimes these errors may affect the content or meaning of a given sentence.
== END 2020-09-03 10:04 | disposition home or self-care (01) ==
LOC: HO.US 10:03
PROVIDERS: Visit Provider Advanced Practice Midwife
DX: O36.5930 Maternal care for other known or suspected poor fetal growth, third trimester, not applicable or unspecified (principal)
CPT/HCPCS: 76816

== ENCOUNTER → 2020-09-14 08:48 | Outpatient (BNVA) | payer OTHER, SELFPAY | PROVIDERS: Visit Provider Advanced Practice Midwife | DX: Z34.93 Encounter for supervision of normal pregnancy, unspecified, third trimester (principal); Z3A.30 30 weeks gestation of pregnancy | CPT/HCPCS: 81003; 90471; 90715; 99212 ==

== ENCOUNTER → 2020-09-28 08:40 | Outpatient (BNVA) | payer OTHER, SELFPAY | PROVIDERS: Visit Provider Advanced Practice Midwife | DX: Z34.93 Encounter for supervision of normal pregnancy, unspecified, third trimester (principal); Z3A.32 32 weeks gestation of pregnancy | CPT/HCPCS: 81003; 99212 ==

== ENCOUNTER → 2020-10-12 08:35 | Outpatient (BNVA) | payer OTHER, SELFPAY | PROVIDERS: Visit Provider Advanced Practice Midwife | DX: Z34.03 Encounter for supervision of normal first pregnancy, third trimester (principal); Z3A.34 34 weeks gestation of pregnancy | CPT/HCPCS: 99212 ==

== ENCOUNTER 2020-10-18 15:51 | Outpatient (REF) | payer OTHER, SELFPAY | END 2020-10-18 15:52 | disposition home or self-care (01) | LOC: HO.LAB 15:51 | PROVIDERS: Visit Provider Internal Medicine | DX: Z20.822 Contact with and (suspected) exposure to COVID-19 (principal) | CPT/HCPCS: C9803; U0003; U0005 ==

== ENCOUNTER 2020-10-27 10:41 | Outpatient (REF) | payer OTHER, SELFPAY ==
[2020-10-27 14:29] LABS: CT PCR NOT DETECTED (Not Detect.); NG PCR NOT DETECTED (Not Detect.)
== END 2020-10-27 10:42 | disposition home or self-care (01) ==
LOC: HO.LAB 10:41
PROVIDERS: Visit Provider Obstetrics & Gynecology
DX: O99.343 Other mental disorders complicating pregnancy, third trimester (principal); F41.9 Anxiety disorder, unspecified; Z3A.36 36 weeks gestation of pregnancy
CPT/HCPCS: 87081; 87491; 87591; 99212

== ENCOUNTER → 2020-11-08 10:46 | Outpatient (BNVA) | payer OTHER, SELFPAY | PROVIDERS: Visit Provider Advanced Practice Midwife | DX: Z34.03 Encounter for supervision of normal first pregnancy, third trimester (principal); Z3A.37 37 weeks gestation of pregnancy | CPT/HCPCS: 81003; 99212 ==

== ENCOUNTER → 2020-11-15 09:17 | Outpatient (BNVA) | payer OTHER, SELFPAY | PROVIDERS: Visit Provider Advanced Practice Midwife | DX: Z34.03 Encounter for supervision of normal first pregnancy, third trimester (principal); Z3A.38 38 weeks gestation of pregnancy | CPT/HCPCS: 81003; 99212 ==

== ENCOUNTER → 2020-11-26 09:53 | Outpatient (BNVA) | payer OTHER, SELFPAY | PROVIDERS: Visit Provider Advanced Practice Midwife | DX: O48.0 Post-term pregnancy (principal); O98.813 Other maternal infectious and parasitic diseases complicating pregnancy, third trimester; B37.3 Candidiasis of vulva and vagina; Z3A.40 40 weeks gestation of pregnancy | CPT/HCPCS: 81003; 99212 ==

== ENCOUNTER → 2020-11-30 10:05 | Outpatient (BNVA) | payer OTHER, SELFPAY | PROVIDERS: Visit Provider Obstetrics & Gynecology | DX: O48.0 Post-term pregnancy (principal); Z3A.41 41 weeks gestation of pregnancy | CPT/HCPCS: 59025; 99212 ==

== ENCOUNTER 2020-12-03 10:16 | Outpatient (REF) | payer OTHER, SELFPAY ==
--- NOTE | ~2020-12-03 | US_ITS ---
EXAMINATION: OBSTETRICAL ULTRASOUND, Follow up HISTORY: 20-year-old at 41.2 weeks of gestation Size date discrepancy Post term COMPARISON: 09/03/2020 TECHNIQUE: Real time transabdominal imaging with color and M-mode Doppler. PRESENTATION: Vertex PLACENTA LOCATION: Posterior without previa AMNIOTIC FLUID: THOMAS 5.7 cm MEASUREMENTS: 1. Biparietal Diameter: 9.4 cm; 38.2 wks 2. Head Circumference: 34.7 cm; 40.3 wks 3. Abdominal Circumference: 35.8 cm; 39.5 wks 4. Femur Length: 7.8 cm; 39.6 wks 5. Heart Rate: 146 beats per minute WEIGHT: EFW: 3835 grams (8 lbs 7 oz) -- BIOPHYSICAL PROFILE: Motion: 2 Tone: 2 Breathin Amniotic Fluid: 2 Total score: 8/8 GESTATIONAL AGE: 1. Established GA: 41.2 wks 2. GA from AUA: 39.4 wks ESTIMATED DATE OF DELIVERY: 1. Established CIARAN: 11/24/2020 2. CIARAN from AUA: 12/06/2020 US/US OB follow up IMPRESSION: 1. A single active fetus is in vertex presentation 2. Size equals dates 3. BPP score of 8/8 I reviewed today's ultrasound findings as well as risks and benefits of expectant management versus induction of labor between 41 and 42 weeks of gestation. As long as her testing continues to be reassuring, expectant management until approximately 42 weeks is reasonable. She informs me that her induction has been scheduled for middle of next week. I advised her to monitor kick counts. Thank you very much for this referral. Total time 30 minutes. The time spent was devoted to counseling the patient about the disease and diagnosis, coordinating care including reviewing her records, pertinent lab data and studies, as well as discussing diagnostic evaluation and workup, plan therapeutic interventions and future disposition of care. This includes any additional research needed to obtain further information in formulating the plan of care of this patient. This note was generated with a voice recognition program. Please excuse any errors which may have been overlooked during my review of this note. Sometimes these errors may affect the content or meaning of a given sentence.
== END 2020-12-03 10:17 | disposition home or self-care (01) ==
LOC: HO.US 10:16
PROVIDERS: Visit Provider Obstetrics & Gynecology
DX: O48.0 Post-term pregnancy (principal)
CPT/HCPCS: 76816

== ENCOUNTER → 2020-12-22 11:25 | Outpatient (BNVA) | payer OTHER, SELFPAY | PROVIDERS: Visit Provider Advanced Practice Midwife | DX: Z39.2 Encounter for routine postpartum follow-up (principal); Z30.09 Encounter for other general counseling and advice on contraception | CPT/HCPCS: 99212 ==

== ENCOUNTER → 2021-01-05 12:58 | Outpatient (BNVA) | payer OTHER, SELFPAY | PROVIDERS: Visit Provider Advanced Practice Midwife | DX: Z30.42 Encounter for surveillance of injectable contraceptive (principal) | CPT/HCPCS: 96372; 99211 ==

== ENCOUNTER → 2021-01-19 14:37 | Outpatient (BNVA) | payer OTHER, SELFPAY | PROVIDERS: Visit Provider Advanced Practice Midwife | DX: Z39.2 Encounter for routine postpartum follow-up (principal); Z30.09 Encounter for other general counseling and advice on contraception; Z30.42 Encounter for surveillance of injectable contraceptive | CPT/HCPCS: 99212 ==

== ENCOUNTER → 2021-03-28 13:06 | Outpatient (BNVA) | payer OTHER, SELFPAY | PROVIDERS: Visit Provider Advanced Practice Midwife | DX: Z30.42 Encounter for surveillance of injectable contraceptive (principal) | CPT/HCPCS: 96372; 99211 ==

== ENCOUNTER → 2021-06-22 13:07 | Outpatient (BNVA) | payer OTHER, SELFPAY | PROVIDERS: Visit Provider Advanced Practice Midwife | DX: Z30.42 Encounter for surveillance of injectable contraceptive (principal) | CPT/HCPCS: 96372; 99211 ==

== ENCOUNTER → 2022-01-26 15:03 | Outpatient (BNVA) | payer OTHER, SELFPAY | PROVIDERS: Visit Provider Advanced Practice Midwife | DX: Z30.09 Encounter for other general counseling and advice on contraception (principal); Z32.02 Encounter for pregnancy test, result negative | CPT/HCPCS: 99212 ==

== ENCOUNTER → 2022-02-16 14:53 | Outpatient (BNVA) | payer OTHER, SELFPAY | PROVIDERS: Visit Provider Advanced Practice Midwife | DX: Z30.42 Encounter for surveillance of injectable contraceptive (principal) | CPT/HCPCS: 96372; 99211 ==

== ENCOUNTER 2022-03-15 14:36 | Outpatient (REF) | payer OTHER, SELFPAY ==
[2022-03-16 02:11] LABS: CT PCR NOT DETECTED (Not Detect.); NG PCR NOT DETECTED (Not Detect.)
[2022-03-16 09:19] LABS: BV Int Neg Control Negative (Negative); BV Int Pos Control Positive (Positive)
== END 2022-03-15 14:37 | disposition home or self-care (01) ==
LOC: HO.LNP 14:36
PROVIDERS: Visit Provider Advanced Practice Midwife
DX: Z01.419 Encounter for gynecological examination (general) (routine) without abnormal findings (principal); N85.2 Hypertrophy of uterus; Z98.891 History of uterine scar from previous surgery
CPT/HCPCS: 81025; 87480; 87491; 87510; 87591; 87660; 88142

== ENCOUNTER → 2022-05-09 14:59 | Outpatient (BNVA) | payer OTHER, SELFPAY | PROVIDERS: Visit Provider Advanced Practice Midwife | DX: Z30.42 Encounter for surveillance of injectable contraceptive (principal) | CPT/HCPCS: 96372; 99211 ==

== ENCOUNTER 2022-07-26 12:56 | Outpatient (REF) | payer OTHER, SELFPAY ==
[2022-07-26 18:26] LABS: CT PCR NOT DETECTED (Not Detect.); NG PCR NOT DETECTED (Not Detect.)
[2022-07-27 10:15] LABS: BV Int Neg Control Negative (Negative); BV Int Pos Control Positive (Positive)
== END 2022-07-26 12:57 | disposition home or self-care (01) ==
LOC: HO.LNP 12:56
PROVIDERS: Visit Provider Advanced Practice Midwife
DX: R87.615 Unsatisfactory cytologic smear of cervix (principal); A59.9 Trichomoniasis, unspecified; J06.9 Acute upper respiratory infection, unspecified; Z12.4 Encounter for screening for malignant neoplasm of cervix; Z20.2 Contact with and (suspected) exposure to infections with a predominantly sexual mode of transmission
CPT/HCPCS: 0353U; 87480; 87510; 87660; 88142; 99212

== ENCOUNTER 2023-07-30 15:10 | Outpatient (AMB) | payer OTHER, SELFPAY ==
[2023-07-30 15:15] VITALS: BP 100/68; BMI 20.9
--- NOTE | 2023-07-30 15:15 | A.OFFVIS_ITS ---
Vital Signs 07/30/23 15:15 Height 5 ft 3 in Weight 118 lb BMI 20.9 BP 100/68 Intake Visit Reasons: [employer] annual exam Intake Note: would like to get std tested and would like to get back on the depo Fryline Attendant Required: No Information Interpreted: non-clinical & clinical Urology Physician Assistant: Urology Physician Assistant Present (Luz) Allergies No Known Allergies [No Known Allergies*] Allergy (Verified 07/30/23 15:17) Medication List - Last Reconciled 07/30/23 by Glory Johns CNM No Known Home Meds Is last menstrual period known: No (She states it was in June) Post menopausal: No HPI HPI [employer] annual exam: Details: 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 She is interested in getting back on Depo-Provera which she was on for about a year she had trouble remembering pills and other methods that we reviewed or that she mentioned freaked her out. Her daughter's 2-1/2 and very active. She had sex with somebody new so she does want to get tested. [facility] Medical History No significant past medical history Surgical History Hx of section Family History Maternal Grandmother No problems noted. Maternal Grandfather Cancer Social History Household Members: Significant Other and Family Alcohol intake: never Substance Use Type: Marijuana Female Reproductive History Menstrual Age of Menarche: 12 Duration of menses: 6-7 days control method: none Total pregnancies: 1 Full term: 1 Number of Living Children: 1 Date of last pap smear: 07/27/22 (negative) Physical Exam Vital Signs: Last Vital Signs BP 100/68 07/30/23 15:15 BMI result Body Mass Index 20.9 Const General: healthy appearing, comfortable, no acute distress, well developed and alert Nutritional Appearance: average body habitus Orientation/consciousness: patient oriented x3 Limitations: no limitations HEENT Head: Yes normocephalic Neck Neck: Yes normal visual inspection Chest Chest palpation & inspection: normal inspection of the chest Breast/axilla inspection: normal inspection of the breasts and normal inspection of the axillae Breast/axilla palpation: normal palpation of the breasts and normal palpation of the axillae Resp Effort & Inspection: normal respiratory effort GI Inspection: Yes normal to inspection, No Abdominal wall edema and No distended Palpation (GI): Soft to palpation and nontender General: Yes bladder normal to palpation External Female Exam: normal external appearance and normal appearance of the urethra Speculum Exam - Vagina: normal appearance of the vagina, normal palpation and normal vaginal discharge Speculum Exam - Cervix: normal appearance of the cervix, normal palpation and nontender Bimanual exam- vagina & uterus: normal bimanual exam, normal palpation, uterine size normal, bladder normal to palpation, consistency normal, normal palpation, uterine mobility normal, uterine shape normal, No Cervical tenderness present, non-tender and no cervical motion tenderness Bimanual Exam- Adnexa, other: normal adnexae, no masses, normal and No adnexal tenderness Neuro General: patient oriented x3 Assessment & Plan Assessment & Plan (1) Cervical cancer screening: Comment: 03/15/2022 Pap is unsatisfactory secondary to inflammation. ( w trich); 07/26/2022 Pap is negative. Code(s): Z12.4 - Encounter for screening for malignant neoplasm of cervix Category: Medical (2) Well woman exam with routine gynecological exam: Code(s): Z01.419 - Encounter for gynecological examination (general) (routine) without abnormal findings Category: Medical (3) control counseling: Code(s): Z30.09 - Encounter for other general counseling and advice on contraception Category: Medical (4) Hx of section: Code(s): Z98.891 - History of uterine scar from previous surgery Category: Surgical (5) Encounter for screening examination for sexually transmitted disease: Code(s): Z11.3 - Encounter for screening for infections with a predominantly sexual mode of transmission Category: Medical Plan -----Discussed in this visit the following: healthy balanced diet, regular and consistent exercise, getting recommended health screens, doing the best she can for her particular health concerns, kegel exercises, pap smear screening and followup recommendations, mammography screening and SBE, normal changes in cycles in her life stage--- . Reviewed options for control reviewed resuming the Depo-Provera reviewed the side effects and what to watch for reviewed the importance of weight-bearing exercise having enough calcium in her diet and watching for mood changes in other changes reviewed that she would need to start it with the beginning of her next period and reviewed the rationale for this. Patient wants blood work for STIs as well as the testing that I did during the exam for gonorrhea chlamydia trichomoniasis etc.. I am ordering the blood work and she is going to think about when she gets the results about whether not she wants to repeat things in the future which she may. I am sending a prescription for the Depo-Provera to her pharmacy and she can pick it up and have it ready and when she calls with her period and mixed an appointment with the [facility] that is when she can get her Depo review to be every 12 weeks after that. Also reviewed her her labor and delivery and attempt to induce her at 42 weeks with no success and use of every method that is available currently too k from Sunday to when they finally did a she has noticed sometimes when she turns on her right side and it is ever since the in her mind, she notes a discomfort in her right upper abdomen. Reviewed the positions of the surgeon and cataloging assistant at her delivery and possible abdominal pressure that might choose to help expel her fetus during the she did have any lb. Her scars extremely well though crooked. Orders: Orders Hepatitis C Antibody Today Z11.3 - Encounter for screening for infections with a predominantly sexual mode of transmission Syphilis Screen Today Z11.3 - Encounter for screening for infections with a predominantly sexual mode of transmission CT NG by PCR Today Z11.3 - Encounter for screening for infections with a predominantly sexual mode of transmission Hepatitis B Surface Antigen Today Z11.3 - Encounter for screening for infections with a predominantly sexual mode of transmission HIV Ab/Ag Today Z11.3 - Encounter for screening for infections with a predominantly sexual mode of transmission Bacterial Vaginosis Panel Today Z11.3 - Encounter for screening for infections with a predominantly sexual mode of transmission Medications: New medroxyprogesterone (Depo-Provera) Start at the beginning of next menses then Q 12 weeks. 150 mg IM Q12W 1 mL 5RF Coding Level of Care Code Est Pt Prev Care 18-39y(40655) Diagnoses Cervical cancer screening Z12.4 Well woman exam with routine gynecological exam Z01.419 control counseling Z30.09 Hx of section Z98.891 Encounter for screening examination for sexually transmitted disease Z11.3
== END 2023-07-31 09:31 | disposition home or self-care (01) ==
LOC: HO.HWSM 15:10
PROVIDERS: Visit Provider Advanced Practice Midwife
DX: Z12.4 Encounter for screening for malignant neoplasm of cervix (principal); Z01.419 Encounter for gynecological examination (general) (routine) without abnormal findings; Z30.09 Encounter for other general counseling and advice on contraception; Z98.891 History of uterine scar from previous surgery; Z11.3 Encounter for screening for infections with a predominantly sexual mode of transmission
CPT/HCPCS: 99395

== ENCOUNTER → 2023-07-30 15:10 | Outpatient (BNVA) | payer OTHER, SELFPAY | PROVIDERS: Visit Provider Advanced Practice Midwife ==

== ENCOUNTER 2023-07-30 16:24 | Outpatient (REF) | payer OTHER, SELFPAY ==
[2023-07-31 02:44] LABS: CT PCR NOT DETECTED (Not Detect.); NG PCR NOT DETECTED (Not Detect.)
[2023-07-31 08:35] LABS: HIV AB/AG Nonreactive (Nonreactive); HIV Num 1 0.04 S/CO (0.00-0.99); ~HepC Num1 0.12 S/CO (0.00-0.79); ~Hepatitis C Antibody Nonreactive (Nonreactive)
[2023-07-31 08:42] LABS: Syphilis Screen Nonreactive (Nonreactive)
[2023-07-31 14:11] LABS: Bacterial Vaginosis PCR NEGATIVE (Negative); Candida Group PCR DETECTED (Not Detect); Candida glab krusei PCR NOT DETECTED (Not Detect); Trichomonas vaginalis PCR NOT DETECTED (Not Detect)
== END 2023-07-30 16:25 | disposition home or self-care (01) ==
LOC: HO.HHCL 16:24
PROVIDERS: Visit Provider Advanced Practice Midwife
DX: Z01.419 Encounter for gynecological examination (general) (routine) without abnormal findings (principal); Z11.3 Encounter for screening for infections with a predominantly sexual mode of transmission
CPT/HCPCS: 0352U; 0353U; 36415; 86780; 86803; 87389; 87480; 87510; 87660; 99395

== ENCOUNTER 2023-08-27 14:47 | Outpatient (AMB) | payer OTHER, SELFPAY ==
[2023-08-27 15:09] VITALS: BMI 20.6
--- NOTE | 2023-08-27 15:09 | AM.OFFVISNUR ---
Intake Vital Signs 08/27/23 15:09 Height 5 ft 3 in Weight 52.673 kg BMI 20.6 Intake Visit Reasons: Depo Allergies No Known Allergies [No Known Allergies*] Allergy (Verified 07/30/23 15:17) Nursing Note Tess is here today for her Depo-Provera restart. Her LMP was 08/20/23 and just finished today. test in office was Neg. Pt denies any UPI in the last few weeks. INJ given as ordered. Pt was advised she needs to use additional bc x 2 weeks. Pt verbs understanding. Office Procedures Depo Questionnaire If YES to any of the following questions, please consult a provider. Date of last injection: 08/27/23 Date of last menstrual period: 08/20/23 Menstrual pattern since last injection has been: Light test in office results: Negative Irregular bleeding?: No Breast lumps or other breast changes?: No Changes in weight or appetite?: No Depression or changes in mood?: No Abnormal hair growth or loss?: No Skin problems (rash, acne, discoloration)?: No Pain at the injection site?: No Headaches?: No Nervousness?: No Abdominal pain or cramping?: No Dizziness or nausea?: No Fatigue or weakness?: No Decrease in sexual drive?: No Chest pain or shortness of breath?: No Swelling in arms or legs?: No Form completed by?: Ajith matt LPN Office Meds Depo-Provera 150 mg/mL intramuscular syringe Performing Provider: Glory Johns CNM Performing Location: [facility] [place] [facility] Administered by: Michelle Matt LPN on 08/27/23 15:10 Dose Route Admin Location Dispensed Lot Number Expiration Date [facility] [employer] 150 mg IM left deltoid 1 mL [id number] 10/16/25 94171-258-98 [facility] Results AMB Test Urine AMB Test Urine Negative Last Edit by Michelle Matt LPN on 08/27/23 15:15 Coding Level of Care Code Established Pt Est Pt Level 1 (81204) Patient Type Established History Problem Focused Exam Problem Focused Medical Decision Making Straight Forward Time Spent (min) 20 Assessment & Plan Assessment & Plan Orders: Orders AMB Medroxyprogesterone Injection Patient Supplied Today Z30.42 - Encounter for surveillance of injectable contraceptive Medications: New Depo-Provera (medroxyprogesterone) 150 mg IM ONCE 1 mL 0RF NS Z30.42 - Encounter for surveillance of injectable contraceptive
== END 2023-08-27 15:27 | disposition home or self-care (01) ==
LOC: HO.HWS 14:47
PROVIDERS: Visit Provider Advanced Practice Midwife
DX: Z30.42 Encounter for surveillance of injectable contraceptive (principal)

== ENCOUNTER → 2023-08-27 14:47 | Outpatient (BNVA) | payer OTHER, SELFPAY | PROVIDERS: Visit Provider Advanced Practice Midwife | DX: Z30.42 Encounter for surveillance of injectable contraceptive (principal) | CPT/HCPCS: 96372; 99211; J1050 ==

== ENCOUNTER 2023-09-01 15:49 | Emergency (ER) | payer OTHER, SELFPAY ==
[2023-09-01 15:59] VITALS: BP 108/54; PULSE 78; RESP 16; TEMP 36.4; O2SAT 100; BMI 20.7
--- NOTE | 2023-09-01 16:00 | ED_ITS ---
HPI - Female Genitourinary General Chief complaint: Urogenital-Female Stated complaint: vag discharge Time Seen by Provider: 09/01/23 16:22 Source: patient, RN notes reviewed and old records reviewed Mode of arrival: ambulatory History of Present Illness ED Provider: Mansi Hoang PA-C [facility] Narrative: 23-year-old female with a past medical history of Trichomonas presenting to the ED complaining of yellow vaginal discharge x2 weeks s/p new sexual partner without the use of protection. Denies fever, chills, abdominal pain, vaginal bleeding, vaginal lesions, odor, nausea/vomiting. LMP 08/19 Related Data Previous Rx's ?Medication ?Instructions ?Recorded medroxyprogesterone 150 mg/mL 150 mg IM Q12W #1 mL 07/30/23 intramuscular suspension (Depo-Provera) doxycycline hyclate 100 mg tablet 100 mg PO BID 7 days #14 tabs 09/01/23 fluconazole 150 mg tablet 150 mg PO Q3D 1 dose #1 tab 09/01/23 Allergies Allergy/AdvReac Type Severity Reaction Status Date / Time No Known Allergies Allergy Verified 09/01/23 16:02 [No Known Allergies*] Review of Systems Review of Systems: Constitutional: No Fever, No Chills, No Night Sweats, No Fatigue, No Malaise Cardiovascular: No Chest Pain, No SOB Respiratory: No Cough, No Dyspnea Gastrointestinal: No Nausea, No Vomiting, No Diarrhea, No Constipation, No Abdominal pain Genitourinary: No irregular bleeding, No Dysuria, No Urinary Frequency, No Hematuria, No Urinary Incontinence/retention, No Flank Pain,+vaginal d/c Musculoskeletal: No joint pain, No Myalgias, No Joint Swelling Skin: No Skin Lesions, No rash Yes all other systems are reviewed and are negative Constitutional: Constitutional: Reports as per [facility] Past Medical History Attestation statement: The following information was validated with the patient. Source: old records reviewed Medical History No significant past medical history Surgical History Hx of section Family History Family History Maternal Grandmother No problems noted. Maternal Grandfather Cancer Social History Social History Household Members: Significant Other and Family Alcohol intake: never Substance Use Type: Marijuana Advance Directives: No Advance Directives Information Provided: No Physical Exam Vital Signs: Vital Signs: Last Vital Signs Temp 98.9 F 09/01/23 17:34 Pulse 51 09/01/23 17:34 Resp 16 09/01/23 17:34 BP 102/57 L 09/01/23 17:34 Pulse Ox 98 09/01/23 17:34 O2 Del Method Room Air 09/01/23 17:34 BMI result Body Mass Index 20.7 Const: General: cooperative, healthy appearing and no acute distress Orientation/consciousness: patient oriented x3 Limitations: no limitations HEENT: Head: Yes normal to inspection and Yes atraumatic Ears: hearing grossly normal bilaterally General nose exam: Normal external nose present Face and sinus: Yes normal facial exam Eyes: General: appearance normal, both eyes and all related structures EOM: EOMs intact bilaterally Neck: Neck: Yes normal visual inspection and Yes no meningeal signs Resp: Effort & Inspection: normal respiratory effort and no respiratory distress Cardio: Rate: regular rate GI: Inspection: Yes normal to inspection Palpation (GI): Soft to palpation, nontender, no guarding and not rigid : General: Yes no CVA tenderness Speculum Exam - Vagina: abnormal vaginal discharge white and yellow, no lacerations, no lesions, No vaginal bleeding and nontender OB/external & speculum: No vaginal bleeding Back/Spine/Pelvis: Back: no CVA tenderness Skin: Rashes: no rashes Wounds: no wounds Neuro: General: patient oriented x3, tone normal and no meningeal signs Cranial nerves: Yes CN's II-XII intact bilaterally Gait exam (Neuro): Normal gait present Extrem: General: Yes normal to inspection Course Course Course Narrative: This is a Rapid Medical Examination (RME) performed by Cholo Delgado PA-C in triage. Full HPI, ROS, assessment and treatment plan per primary provider in the Main ED. 23-year-old female with history of trichomoniasis presents to the ER for evaluation of 2 weeks of yellow vaginal discharge. No other associated symptoms, including no urinary symptoms, no vaginal pain, itching. No abdominal pain, nausea, vomiting. Patient's last sexual encounter was 2 weeks ago. LMP 2 weeks ago. Plan: STI testing and treatment -1743--UA with WBC and leuk esterase likely from discharge. Low suspicion for UTI. Refrain from additional UTI treatment at this time. Results discussed with patient including worrisome signs and symptoms and strict return precautions, and when to return to the emergency department. They verbalized understanding and feel safe for discharge at this time. Medical Decision Making Medical Decision Making [facility] Narrative: 23-year-old female with a past medical history of Trichomonas presenting to the ED complaining of yellow vaginal discharge x2 weeks s/p new sexual partner without the use of protection. On exam vital signs stable, NAD, nontoxic appearing, abdomen soft/nontender. On pelvic exam white/yellow vaginal discharge appreciated. No bleeding. No lesions. No tenderness. Concern for STI vs yeast. Low suspicion for ovarian torsion, TOA. Rule out . Plan: UA, STI testing, empiric treatment with p.o. doxycycline, IM Rocephin & PO Diflucan Please refer to course for remaining clinical decision making, interpretation of labs/imaging results, and discussions with consultants and/or family members. Differential Diagnosis Differential Diagnoses: The differential diagnosis associated with the presentation includes As above Lab Data [facility] Lab Attestation statement: I reviewed the patient's lab results. Labs: Lab Results 09/01/23 Range/Units 16:28 Urine Color Yellow Urine Appearance Clear Urine pH 5.5 (5.0-9.0) Ur Specific [place] 1.015 (1.005-1.025) Urine Protein Negative (Neg-Trace) mg/dL Urine Glucose (UA) Negative (Negative) mg/dL Urine Ketones Negative (Negative) mg/dL Urine Blood Negative (Negative) Urine Nitrite Negative (Negative) Ur Leukocyte Esterase Trace H (Negative) Urine RBC 0-2 (0-2) /HPF Urine WBC 6-10 H (0-5) /HPF Ur Squamous Epith Cells 0-2 (0-2) /HPF Urine Bacteria Trace (None Seen) Hyaline Casts 0-2 (0-2) /LPF Urine Test NEGATIVE (NEGATIVE) External Record Review External record reviewed: Inpatient record, Office record, Outpatient record, Prior outpatient labs, Prior outpatient radiology, Primary care record and Outside ED record Tests considered The following testing was considered but not selected: As above Prescription Management I considered prescription management with: Antibiotic Discharge Plan Discharge Clinical Impression: Vaginal discharge Patient Disposition: Home, Self-Care Instructions: Vaginal Discharge (ED) Additional Instructions: We tested you for STIs. You are being treated for gonorrhea and chlamydia as well as a yeast infection Continue to take doxycycline as prescribed. Diflucan is for yeast infection, take in 3 days if you still have symptoms. You were given treatment in the emergency department Refrain from any sexual contact until you know the results of her cultures. You will be contacted with positive results only Follow-up with your OBGYN If symptoms persist or worsen return to the ED Prescriptions: New doxycycline hyclate 100 mg tablet 100 mg PO BID 7 Days Qty: 14 0RF fluconazole 150 mg tablet 150 mg PO Q3D Qty: 1 0RF Rx Instructions: administer in 3 days if symptoms still persist No Action medroxyprogesterone [Depo-Provera] 150 mg/mL suspension 150 mg IM Q12W Qty: 1 5RF Rx Instructions: Start at the beginning of next menses then Q 12 weeks. Referrals: [facility] [Provider Group] Print Language: Polish
[2023-09-01 16:56] LABS: Appearance Urine Clear; Color Urine Yellow; Glucose Urine UA Negative (Negative); Leukocyte Esterase Urine Trace (Negative); Nitrite Urine Negative (Negative); PH 5.5 (5.0-9.0); Specific Gravity - Urine 1.015 (1.005-1.025); UMIC TRIGGER UACC YES; UPreg QC Valid YES; Urine Blood Negative (Negative); Urine Ketones Negative (Negative); Urine Pregnancy NEGATIVE (NEGATIVE); Urine Protein Negative (Neg-Trace)
[2023-09-01 17:02] LABS: Bacteria Urine Trace (None Seen); Hyaline Casts Urine 0-2 /LPF (0-2); RBC Urine 0-2 /HPF (0-2); Squamous Epithelial Cell Urine 0-2 /HPF (0-2); UACC Culture Trigger YES
[2023-09-01 17:34] VITALS: BP 102/57; PULSE 51; RESP 16; TEMP 37.2; O2SAT 98
[2023-09-01] MEDS: cefTRIAXone sodium 500 MG, Lidocaine HCl 1 % MPF 1 ML IM (17:47)
[2023-09-01] MEDS: Fluconazole 150 MG TABLET PO (17:47)
[2023-09-01] MEDS: Doxycycline Monohydrate 100 MG CAPSULE PO (17:47)
[2023-09-01 18:07] VITALS: BP 102/57; PULSE 51; RESP 16; TEMP 37.2; O2SAT 98
[2023-09-02 09:59] LABS: Bacterial Vaginosis PCR NEGATIVE (Negative); Candida Group PCR DETECTED (Not Detect); Candida glab krusei PCR NOT DETECTED (Not Detect); Trichomonas vaginalis PCR NOT DETECTED (Not Detect)
[2023-09-02 10:07] LABS: CT PCR NOT DETECTED (Not Detect.); NG PCR DETECTED (Not Detect.)
== END 2023-09-01 18:00 | disposition home or self-care (01) ==
PROVIDERS: Physician Assistant; Emergency Provider Emergency Medicine
DX: N89.8 Other specified noninflammatory disorders of vagina (principal); Z20.2 Contact with and (suspected) exposure to infections with a predominantly sexual mode of transmission
CPT/HCPCS: 0352U; 0353U; 81001; 81025; 87086; 96372; 99283; 99284; J0696

== ENCOUNTER 2023-11-22 10:00 | Outpatient (AMB) | payer OTHER, SELFPAY ==
[2023-11-22 10:21] VITALS: BMI 21.5
--- NOTE | 2023-11-22 10:21 | AM.OFFVISNUR ---
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 No c/o, no new medications or new medical problems. Pt tolerated injection well. She will return in 12 weeks for her next injection. Pt verbalizes understanding and agrees with plan. No further questions. Office Procedures Depo Questionnaire If YES to any of the following questions, please consult a provider. Date of last injection: 08/27/23 Date of last menstrual period: 11/04/23 Date of last gynecology exam: 07/30/23 Menstrual pattern since last injection has been: Normal Irregular bleeding?: No Breast lumps or other breast changes?: No Changes in weight or appetite?: No Depression or changes in mood?: No Abnormal hair growth or loss?: No Skin problems (rash, acne, discoloration)?: No Pain at the injection site?: No Headaches?: No Nervousness?: No Abdominal pain or cramping?: No Dizziness or nausea?: No Fatigue or weakness?: No Decrease in sexual drive?: No Chest pain or shortness of breath?: No Swelling in arms or legs?: No Form completed by?: Yarely Tavares RN Office Meds Depo-Provera 150 mg/mL intramuscular syringe Performing Provider: Golry Johns CNM Performing Location: [facility] [place] [facility] Administered by: Yarely Tavares on 11/22/23 10:26 Dose Route Admin Location Dispensed Lot Number Expiration Date [facility] [employer]er 150 mg IM left deltoid 1 mL [id number] 10/16/25 [id number] [facility] Assessment & Plan Assessment & Plan (1) Encounter for management and injection of depo-Provera: Code(s): Z30.42 - Encounter for surveillance of injectable contraceptive Category: Medical Plan Pt will schedule next Depo injection in 12 weeks. Pt verbalizes understanding and agrees with plan. No further questions. Orders: Orders AMB Medroxyprogesterone Injection Patient Supplied Today Z30.42 - Encounter for surveillance of injectable contraceptive Medications: New Depo-Provera (medroxyprogesterone) 150 mg IM [facility] - Encounter for surveillance of injectable contraceptive
== END 2023-11-22 10:16 | disposition home or self-care (01) ==
LOC: HO.HWS 10:00
PROVIDERS: Visit Provider Advanced Practice Midwife
DX: Z30.42 Encounter for surveillance of injectable contraceptive (principal)

== ENCOUNTER → 2023-11-22 10:00 | Outpatient (BNVA) | payer OTHER, SELFPAY | PROVIDERS: Visit Provider Advanced Practice Midwife | DX: Z30.42 Encounter for surveillance of injectable contraceptive (principal) | CPT/HCPCS: 96372; 99211; J1050 ==

== ENCOUNTER 2024-01-15 10:12 | Outpatient (REF) | payer OTHER, SELFPAY ==
[2024-01-16 03:06] LABS: CT PCR NOT DETECTED (Not Detect.); NG PCR NOT DETECTED (Not Detect.)
[2024-01-16 11:55] LABS: Bacterial Vaginosis PCR POSITIVE (Negative); Candida Group PCR DETECTED (Not Detect); Candida glab krusei PCR NOT DETECTED (Not Detect); Trichomonas vaginalis PCR NOT DETECTED (Not Detect)
== END 2024-01-15 10:13 | disposition home or self-care (01) ==
LOC: HO.LAB 10:12
PROVIDERS: Visit Provider Advanced Practice Midwife
DX: N89.8 Other specified noninflammatory disorders of vagina (principal); Z20.2 Contact with and (suspected) exposure to infections with a predominantly sexual mode of transmission; A54.9 Gonococcal infection, unspecified; Z30.42 Encounter for surveillance of injectable contraceptive
CPT/HCPCS: 0352U; 87491; 87591; 99212

== ENCOUNTER 2024-01-15 10:12 | Outpatient (AMB) | payer OTHER, SELFPAY ==
[2024-01-15 10:18] VITALS: BP 118/60; BMI 21.4
--- NOTE | 2024-01-15 10:18 | MHC.OFFVIS ---
Vital Signs 01/15/24 10:18 Height 5 ft 3 in Weight 121 lb BMI 21.4 BP 118/60 Intake Visit Reasons: VALENCIA/GC Information Interpreted: clinical only Emergency Preparedness Coordinator: Emergency Preparedness Coordinator Present Allergies No Known Allergies [No Known Allergies*] Allergy (Verified 01/15/24 10:20) Medication List - Last Reconciled 01/15/24 by Glory Johns CNM medroxyprogesterone (Depo-Provera) 150 mg IM Q12W Is last menstrual period known: Yes Last menstrual period: 12/11/23 HPI HPI VALENCIA/GC: Details: Patient is here for test of cure for gonorrhea that was diagnosed in August of this year via the emergency room. She had come for an STI check July because she had a suspicion about exposure that test turned out negative but about a month later she continued with discharge in were to the emergency room for evaluation that test was positive she said they gave her an injection and they gave her pills to treat it so she has been treated and she is with a new partner now so she is hoping things are okay. She started on the Depo-Provera at that time and she thinks she has had her 2nd shot about a month ago and she has an appointment January for her next 1 she did get a period November. Not having any other concerns she thinks her discharge is okay she would be interested getting blood work for STIs. Testing for HIV was negative July. [facility] Medical History No significant past medical history Surgical History Hx of section Family History Maternal Grandmother No problems noted. Maternal Grandfather Cancer Social History Household Members: Significant Other and Family Alcohol intake: never Substance Use Type: Marijuana Female Reproductive History Menstrual Age of Menarche: 12 Duration of menses: 3-5 days Date of last menstrual period: 12/11/23 control method: progesterone injection Total pregnancies: 1 Full term: 1 Physical Exam Vital Signs: Last Vital Signs BP 118/60 10/29/24 10:18 BMI result Body Mass Index 21.4 Other: Normal speculum exam vagina pink very whitish discharge coating vagina and cervix. Discharge appears consistent with luteal phase the patient is on Depo-Provera so strictly speaking she would not be in luteal phase. External Female Exam: normal external appearance and normal appearance of the urethra Speculum Exam - Vagina: normal appearance of the vagina and normal vaginal discharge Speculum Exam - Cervix: normal appearance of the cervix and Cervical os closed Assessment & Plan Assessment & Plan (1) Encounter for screening examination for sexually transmitted disease: Code(s): Z11.3 - Encounter for screening for infections with a predominantly sexual mode of transmission Category: Medical (2) On Depo-Provera for contraception: Comment: Restarted Depo 08/27/2023, last injection 11/22/23. has Rx for 1yr. Code(s): Z30.42 - Encounter for surveillance of injectable contraceptive Category: Social Hx (3) Gonorrhea: Comment: DX 09/01/2023 via ER treated at that visit test of cure 01/15/2024. Code(s): A54.9 - Gonococcal infection, unspecified Category: Medical (4) Cervical cancer screening: Comment: 03/15/2022 Pap is unsatisfactory 2' to inflammation. (w trich); 07/26/2022 Pap is negative. Code(s): Z12.4 - Encounter for screening for malignant neoplasm of cervix Category: Medical Plan Reviewed history of STIs and recent diagnosis and treatment for gonorrhea test of cure done today I re offered lab orders for HIV hep B hep C and syphilis as well and she thinks she will get them done since she is here she does have access to the portal but it is wonky. Reviewed her use of Depo-Provera she is happy enough been on now she is in a new relationship with someone not person gave her the gonorrhea she is hoping everything turns out. Today. These are good with her family and her 3-year-old daughter she describes as need she is trying to teach her. She got a new job at [employer] is is liking so far. Orders: Orders Hepatitis B Surface Antigen Today Z11.3 - Encounter for screening for infections with a predominantly sexual mode of transmission Hepatitis C Antibody Today Z11.3 - Encounter for screening for infections with a predominantly sexual mode of transmission HIV Ab/Ag Today Z11.3 - Encounter for screening for infections with a predominantly sexual mode of transmission Syphilis Screen Today Z11.3 - Encounter for screening for infections with a predominantly sexual mode of transmission Coding Level of Care Code Est Pt Level 3 (49073) Diagnoses Encounter for screening examination for sexually transmitted disease Z11.3 On Depo-Provera for contraception Z30.42 Gonorrhea A54.9 Cervical cancer screening Z12.4
== END 2024-01-15 10:51 | disposition home or self-care (01) ==
LOC: HO.HWSM 10:13
PROVIDERS: Visit Provider Advanced Practice Midwife
DX: A54.9 Gonococcal infection, unspecified (principal); Z30.42 Encounter for surveillance of injectable contraceptive
CPT/HCPCS: 99213

== ENCOUNTER 2024-01-15 10:53 | Outpatient (REF) | payer OTHER, SELFPAY ==
[2024-01-15 12:50] LABS: Syphilis Screen Nonreactive (Nonreactive)
[2024-01-15 12:54] LABS: HIV AB/AG Nonreactive (Nonreactive); HIV Num 1 0.05 S/CO (0.00-0.99); Hepatitis B Surface Antigen Negative (Negative); ~HepC Num1 0.12 S/CO (0.00-0.79); ~Hepatitis C Antibody Nonreactive (Nonreactive)
== END 2024-01-15 10:54 | disposition home or self-care (01) ==
LOC: HO.HHCL 10:53
PROVIDERS: Visit Provider Advanced Practice Midwife
DX: Z11.3 Encounter for screening for infections with a predominantly sexual mode of transmission (principal)
CPT/HCPCS: 36415; 86780; 86803; 87340; 87389

== ENCOUNTER 2024-02-12 10:55 | Outpatient (AMB) | payer OTHER, SELFPAY ==
[2024-02-12 11:04] VITALS: BMI 22.0
--- NOTE | 2024-02-12 11:04 | AM.OFFVISNUR ---
Vital Signs 02/12/24 11:04 Height 5 ft 3 in Weight 124 lb 2 oz BMI 22.0 Intake Visit Reasons: DEPO Allergies No Known Allergies [No Known Allergies*] Allergy (Verified 01/15/24 10:20) Nursing Note Tess is here for her scheduled Depo-Provera inj. Pt is thinking about a different method of control due to the recent news regarding brain issues after using Depo-Provera. Pt was advised to schedule a control consult regarding her concerns. Office Procedures Depo Questionnaire If YES to any of the following questions, please consult a provider. Date of last injection: 11/22/23 Date of last menstrual period: 01/07/24 Date of last gynecology exam: 07/30/23 Menstrual pattern since last injection has been: Light Irregular bleeding?: No Breast lumps or other breast changes?: No Changes in weight or appetite?: No Depression or changes in mood?: No Abnormal hair growth or loss?: No Skin problems (rash, acne, discoloration)?: No Pain at the injection site?: No Headaches?: No Nervousness?: No Abdominal pain or cramping?: No Dizziness or nausea?: No Fatigue or weakness?: No Decrease in sexual drive?: No Chest pain or shortness of breath?: No Swelling in arms or legs?: No Form completed by?: Ajith Mccann LPN Office Meds Depo-Provera 150 mg/mL intramuscular syringe Performing Provider: Glory Johns CNM Performing Location[place] [facility] [place] [facility] Administered by: Michelle Mccann LPN on 02/12/24 11:05 Dose Route Admin Location Dispensed Lot Number Expiration Date [facility] Shipper/Receiver 150 mg IM left deltoid 1 mL [id number] 03/18/26 22959-747-41 [facility] Assessment & Plan Assessment & Plan Orders: Orders AMB Medroxyprogesterone Injection Patient Supplied Today Z30.42 - Encounter for surveillance of injectable contraceptive Medications: New Depo-Provera (medroxyprogesterone) 150 mg IM ONCE 1 mL 0RF NS Z30.42 - Encounter for surveillance of injectable contraceptive
== END 2024-02-12 11:14 | disposition home or self-care (01) ==
LOC: HO.HWS 10:55
PROVIDERS: Visit Provider Advanced Practice Midwife
DX: Z30.42 Encounter for surveillance of injectable contraceptive (principal)

== ENCOUNTER → 2024-02-12 10:55 | Outpatient (BNVA) | payer OTHER, SELFPAY | PROVIDERS: Visit Provider Advanced Practice Midwife | DX: Z30.42 Encounter for surveillance of injectable contraceptive (principal) | CPT/HCPCS: 96372; 99211; J1050 ==

== ENCOUNTER 2024-05-07 11:12 | Outpatient (AMB) | payer OTHER, SELFPAY ==
--- NOTE | 2024-05-07 11:34 | AM.OFFVISNUR ---
Vital Signs 05/07/24 11:35 Height 5 ft 3 in Weight 133 lb 4 oz BMI 23.6 Intake Visit Reasons: DEPO Senior Cyber Intelligence Analyst Required: No Allergies No Known Allergies [No Known Allergies*] Allergy (Verified 01/15/24 10:20) Is last menstrual period known: No Post menopausal: No Patient : No Nursing Note Tess is here for her scheduled Depo provera injection. Pt denies any new medications or medical problems. Pt tolerated injection well. She will return in 12 weeks for her next injection. Pt verbalizes understanding and agrees with plan. No further questions. Office Procedures Depo Questionnaire If YES to any of the following questions, please consult a provider. Date of last injection: 02/12/24 Date of last gynecology exam: 07/30/23 Menstrual pattern since last injection has been: Not Applicable Irregular bleeding?: No Breast lumps or other breast changes?: No Changes in weight or appetite?: No Depression or changes in mood?: No Abnormal hair growth or loss?: No Skin problems (rash, acne, discoloration)?: No Pain at the injection site?: No Headaches?: No Abdominal pain or cramping?: No Dizziness or nausea?: No Fatigue or weakness?: No Decrease in sexual drive?: No Chest pain or shortness of breath?: No Swelling in arms or legs?: No Form completed by?: Yarely Tavares RN Office Meds Depo-Provera 150 mg/mL intramuscular syringe Performing Provider: Glory Johns CNM Performing Location: [facility] [place] [facility] Administered by: Yarely Tavares on 05/07/24 11:38 Dose Route Admin Location Dispensed Lot Number Expiration Date [facility] French Cord Binder 150 mg IM left deltoid 1 mL [id number] 03/18/26 71089-016-[address] [facility] Assessment & Plan Assessment & Plan (1) Encounter for management and injection of depo-Provera: Code(s): Z30.42 - Encounter for surveillance of injectable contraceptive Category: Medical Plan: Pt will schedule next injection in 12 weeks. Orders: Orders AMB Medroxyprogesterone Injection Patient Supplied Today Z30.42 - Encounter for surveillance of injectable contraceptive Medications: New Depo-Provera (medroxyprogesterone) 150 mg IM ONCE 1 mL 0RF NS Z30.42 - Encounter for surveillance of injectable contraceptive Coding Level of Care Code Established Pt Est Pt Level 1 (14986) Patient Type Established History Problem Focused Medical Decision Making Straight Forward Diagnoses Encounter for management and injection of depo-Provera Z30.42 Time Spent (min) 20
[2024-05-07 11:35] VITALS: BMI 23.6
--- OUTSIDE RECORDS SUMMARY | 2024-05-07 11:57 | XMS_ITS | Clinical Summary ---
Author Organization [facility] it Address [address] [place] [address] Care Team Providers Care Banbury Mill Operator Name Role Phone Miko Balderas MD Primary Care Provider [phone] Social History Tobacco Use Types Packs/Day Years Used Date Smoking Tobacco: Never Assessed Comments Unknown Sex and Gender Information Value Date Recorded Sex Assigned at Not on file Legal Sex Female 10:48 AM EST Gender Identity Not on file Sexual Orientation Not on file Obstetrics History Plan of Treatment Health Maintenance Due Date Last Done Comments Gonorrhea/Chlamydia Screening 2000 HPV Vaccines (1 - 3-dose series) 06/28/2015 Meningococcal B Vacine (1 of 2 - Standard) 2016 DTaP,Tdap,and Td Vaccines (1 - Tdap) 06/28/2019 Hepatitis B Vaccines (1 of 3 - 19+ 3-dose series) 06/28/2019 Cervical Cancer Screening: P ap Smear 2021 COVID-19 Vaccine ( - 2023-2 5 season) 2023 Influenza Vaccine (#1) 2023 HIB Vaccines Aged Out No longer eligi ble based on patient's age to complete this topic Hepatitis A Vaccines Aged Out No long er eligible based on patient's age to complete this topic IPV Vaccines Aged Out No longer eligi ble based on patient's age to complete this topic MMR Vaccines Aged Out No longer eligi ble based on patient's age to complete this topic Meningococcal ACWY Vaccine Aged Out N o longer eligible based on patient's age to complete this topic Pneumococcal Vaccine: Pediat rics (0 to 5 Years) and At-Risk Patients (6 to 64 Years) Aged Out No longer eligible b ased on patient's age to complete this topic RSV Immunization Patients Un juan ojse 20 months Aged Out No longer eligible b ased on patient's age to complete this topic Varicella Vaccines Aged Out No longer eligible based on patient's age to complete this topic Care Teams Banbury Mill Operator Relationship Specialty Start Date End Date Miko Balderas MD [address] [place] [address] PCP - General Internal Medicine 03/19/20
== END 2024-05-07 11:35 | disposition home or self-care (01) ==
LOC: HO.HWS 11:12
PROVIDERS: Visit Provider Advanced Practice Midwife
DX: Z30.42 Encounter for surveillance of injectable contraceptive (principal)

== ENCOUNTER → 2024-05-07 11:12 | Outpatient (BNVA) | payer OTHER, SELFPAY | PROVIDERS: Visit Provider Advanced Practice Midwife | DX: Z30.42 Encounter for surveillance of injectable contraceptive (principal) | CPT/HCPCS: 96372; 99211; J1050 ==

== ENCOUNTER 2024-05-14 | Outpatient (REF) | payer OTHER, SELFPAY ==
--- OUTSIDE RECORDS SUMMARY | 2024-05-14 19:46 | XMS_ITS | Clinical Summary ---
Author Organization [facility] it Address [address] [place] [address] Care Team Providers Care Grommet Machine Operator Name Role Phone Miko Balderas MD Primary Care Provider [phone] Social History Tobacco Use Types Packs/Day Years [...] age to complete this topic Care Teams Grommet Machine Operator Relationship Specialty Start Date End Date Miko Balderas MD [address] [place] [address] PCP - General Internal Medicine 03/19/20
[2024-05-14 22:01] LABS: Bacterial Vaginosis PCR NEGATIVE (Negative); Candida Group PCR NOT DETECTED (Not Detect); Candida glab krusei PCR NOT DETECTED (Not Detect); Trichomonas vaginalis PCR NOT DETECTED (Not Detect)
== END 2024-05-14 00:01 | disposition home or self-care (01) ==
LOC: HO.LNP
PROVIDERS: Visit Provider Advanced Practice Midwife
DX: N89.8 Other specified noninflammatory disorders of vagina (principal)
CPT/HCPCS: 81515

== ENCOUNTER 2024-05-14 10:12 | Outpatient (REF) | payer OTHER, SELFPAY ==
--- OUTSIDE RECORDS SUMMARY | 2024-05-14 14:08 | XMS_ITS | Clinical Summary ---
Author Organization [facility] it Address [address] [place] [address] Care Team Providers Care Liquid Hydrogen Plant Operator Name Role Phone Miko Balderas MD Primary Care Provider [phone] Social History Tobacco Use Types Packs/Day Years [...] age to complete this topic Care Teams Liquid Hydrogen Plant Operator Relationship Specialty Start Date End Date Miko Balderas MD [address] [place] [address] PCP - General Internal Medicine 03/19/20
[2024-05-14 23:28] LABS: CT PCR DETECTED (Not Detect.); NG PCR NOT DETECTED (Not Detect.)
[2024-05-15 08:24] LABS: Syphilis Screen Nonreactive (Nonreactive)
[2024-05-15 08:54] LABS: HBsAGNum1 0.27 S/CO (0.00-0.99); HIV AB/AG Nonreactive (Nonreactive); HIV Num 1 0.05 S/CO (0.00-0.99); Hepatitis B Surface Antigen Negative (Negative); ~HepC Num1 0.11 S/CO (0.00-0.79); ~Hepatitis C Antibody Nonreactive (Nonreactive)
== END 2024-05-14 10:13 | disposition home or self-care (01) ==
LOC: HO.LAB 10:12
PROVIDERS: Visit Provider Advanced Practice Midwife
DX: Z11.3 Encounter for screening for infections with a predominantly sexual mode of transmission (principal); N89.8 Other specified noninflammatory disorders of vagina
CPT/HCPCS: 86780; 86803; 87340; 87389; 87491; 87591; 99212; 99459

== ENCOUNTER 2024-05-14 10:12 | Outpatient (AMB) | payer OTHER, SELFPAY ==
[2024-05-14 10:17] VITALS: BP 110/62; BMI 23.6
--- NOTE | 2024-05-14 10:17 | MHC.OFFVIS ---
Vital Signs 05/14/24 10:17 Height 5 ft 3 in Weight 133 lb BMI 23.6 BP 110/62 Intake Visit Reasons: STD Roll Plugger Machine Operator Required: No Roll Plugger Machine Operator Services: Roll Plugger Machine Operator Present Information Interpreted: clinical only Import/Export Administrator: Import/Export Administrator Present Allergies No Known Allergies [No Known Allergies*] Allergy (Verified 05/14/24 10:18) Medication List - Last Reconciled 05/14/24 by Glory Johns CNM medroxyprogesterone (Depo-Provera) 150 mg IM Q12W Is last menstrual period known: No (depo) HPI HPI STD: Details: Patient is here for an std check. She is concerned someone she has just wants to she has not had items she is on the Depo-Provera she lies on phone reminder to tell her when her Depo is a good thing she had forgotten about it this past week she would get her Depo this week. She has been on it since the summer discussed considering other options for long-term use but for now is okay she thinks it is good for her right now she is and happy she gained a little bit of weight.. 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 Her daughter is 3 and she says she is ?mean . Discussed variations in behaviors and how children learn, and she says her mother reminds her that she was that way too. [facility] Medical History No significant past medical history Surgical History Hx of section Family History Maternal Grandmother No problems noted. Maternal Grandfather Cancer Social History Household Members: Significant Other and Family Alcohol intake: never Substance Use Type: Marijuana Female Reproductive History Menstrual Age of Menarche: 12 Duration of menses: <3 days control method: progesterone injection Total pregnancies: 1 Full term: 1 Date of last pap smear: 07/27/22 (negative) Physical Exam Vital Signs: Last Vital Signs BP 110/62 05/14/24 10:17 BMI result Body Mass Index 23.6 External Female Exam: normal external appearance and normal appearance of the urethra Speculum Exam - Vagina: normal appearance of the vagina and normal vaginal discharge Speculum Exam - Cervix: normal appearance of the cervix and Cervical os closed Assessment & Plan Assessment & Plan (1) On Depo-Provera for contraception: Comment: Restarted Depo 08/27/2023, last injection 11/22/23. has Rx for 1yr. Code(s): Z30.42 - Encounter for surveillance of injectable contraceptive Category: Social Hx (2) Encounter for screening examination for sexually transmitted disease: Code(s): Z11.3 - Encounter for screening for infections with a predominantly sexual mode of transmission Category: Medical Plan testing done for gc/ chlamydia/trich/ bv and gita. reviewed BC and potential half-way use of various methods. offered bloodwork testing for hiv, hep b, hep c, syphilis. discussed checking portal for results, and what diff results mean, may need treatment,or may not, depending. discussed thinking long line teamster re methods, and ensuring she's keeping track of when depo is due etc and not depending on phone. RTC for annual when due, Depo whenever due.. Lab work, patient on portal for results Orders: Orders HIV Ab/Ag Today Z11.3 - Encounter for screening for infections with a predominantly sexual mode of transmission, Z30.42 - Encounter for surveillance of injectable contraceptive Syphilis Screen Today Z11.3 - Encounter for screening for infections with a predominantly sexual mode of transmission, Z30.42 - Encounter for surveillance of injectable contraceptive Hepatitis C Antibody Today Z11.3 - Encounter for screening for infections with a predominantly sexual mode of transmission, Z30.42 - Encounter for surveillance of injectable contraceptive Coding Level of Care Code Est Pt Level 3 (64253) Diagnoses On Depo-Provera for contraception Z30.42 Encounter for screening examination for sexually transmitted disease Z11.3
--- OUTSIDE RECORDS SUMMARY | 2024-05-14 12:22 | XMS_ITS | Clinical Summary ---
Author Organization [facility] it Address [address] [place] [address] Care Team Providers Care Pt Skilled Name Role Phone Miko Balderas MD Primary Care Provider [phone] Social History Tobacco Use Types Packs/Day Years [...] this topic RSV Immunization Patients Un juan jose 20 months Aged Out No longer eligible b ased on patient's age to complete this topic Varicella Vaccines Aged Out No longer eligible based on patient's age to complete this topic Care Teams Pt Skilled Relationship Specialty Start Date End Date Miko Balderas MD [address] [place] [address] PCP - General Internal Medicine 03/19/20
== END 2024-05-14 10:53 | disposition home or self-care (01) ==
PROVIDERS: Visit Provider Advanced Practice Midwife
DX: Z30.42 Encounter for surveillance of injectable contraceptive (principal); Z20.2 Contact with and (suspected) exposure to infections with a predominantly sexual mode of transmission
CPT/HCPCS: 99213

== ENCOUNTER 2024-05-14 11:18 | Outpatient (REF) | payer OTHER, SELFPAY | END 2024-05-14 11:19 | disposition home or self-care (01) | LOC: HO.HHCL 11:18 | PROVIDERS: Visit Provider Advanced Practice Midwife | DX: Z13.89 Encounter for screening for other disorder (principal) ==

== ENCOUNTER 2024-05-19 17:08 | Emergency (ER) | payer OTHER, SELFPAY ==
--- NOTE | 2024-05-19 | ECG_ITS ---
Test Reason : cp Blood Pressure : */* mmHG Vent. Rate : 57 BPM Atrial Rate : 57 BPM P-R Int : 138 ms QRS Dur : 90 ms QT Int : 410 ms P-R-T Axes : 60 84 52 degrees QTcB Int : 399 ms Sinus bradycardia Otherwise normal ECG When compared with ECG of 22-May-2020 15:23, No significant change was found Referred By: Generic ED Physician Electronically Signed By: LUZ MARINA FINNEY MD
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
[2024-05-19 17:46] VITALS: BP 126/80; PULSE 58; RESP 16; TEMP 36.2; O2SAT 99; BMI 22.2
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
--- OUTSIDE RECORDS SUMMARY | 2024-05-19 19:11 | XMS_ITS | Clinical Summary ---
Author Organization [facility] it Address [address] [place] [address] Care Team Providers Care Rehabilitation Clerk Name Role Phone Miko Balderas MD Primary Care Provider [phone] Social History Tobacco Use Types Packs/Day Years [...] age to complete this topic Care Teams Rehabilitation Clerk Relationship Specialty Start Date End Date Miko Balderas MD [address] [place] [address] PCP - General Internal Medicine 03/19/20
[2024-05-19 21:20] VITALS: BP 112/65; PULSE 79; RESP 16; TEMP 37; O2SAT 97
== END 2024-05-19 21:21 | disposition home or self-care (01) ==
PROVIDERS: Emergency Provider Emergency Medicine Emergency Medical Services
DX: Z04.1 Encounter for examination and observation following transport accident (principal); R07.9 Chest pain, unspecified; R51.9 Headache, unspecified; M54.2 Cervicalgia
CPT/HCPCS: 70450; 71046; 72125; 93005; 99283; 99284

== ENCOUNTER → 2024-05-19 17:26 | Outpatient (BNV) | payer OTHER, SELFPAY | PROVIDERS: Emergency Provider Emergency Medicine Emergency Medical Services; Visit Provider Internal Medicine Cardiovascular Disease | DX: R07.9 Chest pain, unspecified (principal); R00.1 Bradycardia, unspecified | CPT/HCPCS: 93010 ==

== ENCOUNTER → 2024-05-19 17:48 | Outpatient (BNV) | payer OTHER, SELFPAY | PROVIDERS: Visit Provider Specialist | DX: M54.2 Cervicalgia (principal); R51.9 Headache, unspecified; R07.9 Chest pain, unspecified; V49.40XA Driver injured in collision with unspecified motor vehicles in traffic accident, initial encounter; Z04.3 Encounter for examination and observation following other accident | CPT/HCPCS: 70450; 71046; 72125 ==

== ENCOUNTER 2024-07-22 11:30 | Outpatient (AMB) | payer OTHER, SELFPAY ==
--- NOTE | 2024-07-22 11:31 | A.OFFVIS_ITS ---
Vital Signs 07/22/24 11:37 Height 5 ft 4 in Weight 135 lb BMI 23.2 BP 116/70 Intake Visit Reasons: ? BV Intake Note: Patient is unaware of when her last LMP was. Engineering Writer: Engineering Writer Present (Gisela) Accompanied by: Self / Same As Patient Allergies No Known Allergies [No Known Allergies*] Allergy (Verified 07/22/24 11:35) Medication List - Last Reconciled 07/22/24 by Glory Johns CNM medroxyprogesterone (Depo-Provera) 150 mg IM Q12W Is last menstrual period known: No Post menopausal: No Patient : No HPI HPI ? BV: Details: Patient is actually here because she has having symptoms of a UTI she looked up the symptoms on [facility] and she has some urinary urgency and frequency and voiding just a small amount sometimes but feeling like she still needs to void she does not think she has an abnormal discharge and she does not have a fishy odor or anything. She has had a number of STIs in the past while including trichomoniasis in 2020 or 22 gonorrhea in 2023 and chlamydia as recently as April of 2024 she is scheduled for test of cure visit in the near future but we will do it today obviously. She does not have a primary care provider. Her symptoms of the urinary tract infection started about a week ago and she waited a little while but then thought she would trying be seen. She is currently not sexually with anybody and does intend to make them use condoms she is on the Depo-Provera she thinks she has had her 3rd shot so far and she has a another 1 coming up in a week or so the appointment is in her phone she feels she is doing well on the Depo she has a 3-year-old. Her mother watches her when she is at work. [facility] Medical History No significant past medical history Surgical History Hx of section Family History Maternal Grandmother No problems noted. Maternal Grandfather Cancer Social History Household Members: Significant Other and Family Both parents involved: Yes Alcohol intake: never Substance Use Type: Marijuana Patient : No Female Reproductive History Menstrual Age of Menarche: 12 control method: progesterone injection (Depo ) Total pregnancies: 1 Full term: 1 Date of last pap smear: 07/26/22 (negative ) History of abnormal pap smear: No Physical Exam Vital Signs: Last Vital Signs BP 116/70 07/22/24 11:37 BMI result Body Mass Index 23.2 Other: Negative CVAT lower abdomen is nontender to palpation External exam vulva pink within normal limits vagina is pink and moist there is a normal appearing whitish mucus that to this examiner appears normal. Testing done for gonorrhea chlamydia trichomoniasis bacterial vaginosis and yeast and we will await the results to see if there is anything of those to treat. Cervix is mobile nontender uterus mobile nontender bladder is especially nontender as well adnexa nontender good muscle tone with Kegel Assessment & Plan Assessment & Plan (1) Encounter for screening examination for sexually transmitted disease: Code(s): Z11.3 - Encounter for screening for infections with a predominantly sexual mode of transmission Category: Medical (2) Gonorrhea: Comment: DX 09/01/2023 via ER treated at that visit test of cure 01/15/2024. Code(s): A54.9 - Gonococcal infection, unspecified Category: Medical (3) Chlamydia infection: Comment: 05/14/24.........deedee 07/22/24 Code(s): A74.9 - Chlamydial infection, unspecified Category: Medical (4) Urinary urgency: Comment: and frequency x1 week. we will treat as UTI, awaiting culture. Code(s): R39.15 - Urgency of urination Category: Medical (5) On Depo-Provera for contraception: Comment: Restarted Depo 08/27/2023, last injection 11/22/23. has Rx for 1yr. Code(s): Z30.42 - Encounter for surveillance of injectable contraceptive Category: Social Hx (6) Trichomoniasis: Comment: Positive from test done not 03/16/2022 visit. Patient needs treatment and counseling,. partner needs treatment and patient should have test of cure afterward./07/26/2022 test of cure negative. Code(s): A59.9 - Trichomoniasis, unspecified Category: Medical Plan Patient now has an excess of appointments coming up for an annual exam, a test of cure visit as well as the re appointment for her next Depo. Reviewed her appointments with her she is to keep the Depo appointment and she may rearrange the appointments so that we do an annual exam but we will do the test of cure today indeed it is done at this visit. 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 Discussed her current symptoms that do in fact line up with a urinary tract infection and she has been trying to drink a lot a water. I urged her to continue to do the same but given her symptoms and the timing of the visit and when results would be available I am prescribing her Bactrim DS b.i.d. for 3 days and patient will be checking the portal for the results if any of the other testing is positive we will re-treat as according to the results. Reviewed that she has had full testing for other STIs as well via blood work and she says all of those were negative and she is now on the portal and is checking her results herself as well. I also urged her to find a primary care provider. Keep annual exam appointment May discard test of cure appointment as done today Keep Depo-Provera appointments Orders: Orders Urine Culture Today A54.9 - Gonococcal infection, unspecified, A59.9 - Trichomoniasis, unspecified, A74.9 - Chlamydial infection, unspecified, R39.15 - Urgency of urination, Z11.3 - Encounter for screening for infections with a predominantly sexual mode of transmission Medications: New sulfamethoxazole-trimethoprim 800-160 mg (Bactrim DS) Start today and take every 12 hours for twice daily dosing. 1 tab PO Q12H 6 tabs 0RF Coding Level of Care Code Est Pt Level 3 (97514) Diagnoses Encounter for screening examination for sexually transmitted disease Z11.3 Gonorrhea A54.9 Chlamydia infection A74.9 Urinary urgency R39.15 On Depo-Provera for contraception Z30.42 Trichomoniasis A59.9
[2024-07-22 11:37] VITALS: BP 116/70; BMI 23.2
--- OUTSIDE RECORDS SUMMARY | 2024-07-22 13:15 | XMS_ITS | Clinical Summary ---
Author Organization [facility] Address [address] [place] [address] Care Team Providers Care Loft Worker Name Role Phone Miko Balderas MD Primary Care Provider [phone] Social History Tobacco Use Types Packs/Day Years [...] HPV Vaccines (1 - 3-dose series) 06/28/2015 DTaP,Tdap,and Td Vaccines (1 - Tdap) 06/28/2019 Hepatitis B Vaccines (1 of 3 - 19+ 3-dose series) 06/28/2019 Cervical Cancer Screening: P ap Smear 2021 COVID-19 Vaccine (2023-2 5 season) 2023 Influenza Vaccine (Season Ended) 2024 HIB Vaccines Aged Out No longer eligi [...] patient's age to complete this topic Meningococcal B Vaccine Aged Out No l onger eligible based on patient's age to complete [...] age to complete this topic Care Teams Loft Worker Relationship Specialty Start Date End Date Miko Balderas MD [address] [place] [address] PCP - General Internal Medicine 03/19/20
== END 2024-07-22 13:34 | disposition home or self-care (01) ==
LOC: HO.HWSM 11:30
PROVIDERS: Visit Provider Advanced Practice Midwife
DX: A54.9 Gonococcal infection, unspecified (principal); A74.9 Chlamydial infection, unspecified; R39.15 Urgency of urination; Z30.42 Encounter for surveillance of injectable contraceptive; A59.9 Trichomoniasis, unspecified
CPT/HCPCS: 99213

== ENCOUNTER 2024-07-22 11:30 | Outpatient (REF) | payer OTHER, SELFPAY ==
--- OUTSIDE RECORDS SUMMARY | 2024-07-22 13:38 | XMS_ITS | Clinical Summary ---
Author Organization [facility] Address [address] [place] [address] Care Team Providers Care Front Counter Attendant Name Role Phone Miko Balderas MD Primary Care Provider [phone] Social History Tobacco Use Types Packs/Day Years [...] age to complete this topic Care Teams Front Counter Attendant Relationship Specialty Start Date End Date Miko Balderas MD [address] [place] [address] PCP - General Internal Medicine 03/19/20
[2024-07-23 07:39] LABS: CT PCR DETECTED (Not Detect.); NG PCR NOT DETECTED (Not Detect.)
[2024-07-23 11:49] LABS: Bacterial Vaginosis PCR NEGATIVE (Negative); Candida Group PCR NOT DETECTED (Not Detect); Candida glab krusei PCR NOT DETECTED (Not Detect); Trichomonas vaginalis PCR NOT DETECTED (Not Detect)
== END 2024-07-22 11:31 | disposition home or self-care (01) ==
LOC: HO.LAB 11:30
PROVIDERS: Visit Provider Advanced Practice Midwife
DX: Z30.42 Encounter for surveillance of injectable contraceptive (principal); A54.9 Gonococcal infection, unspecified; A74.9 Chlamydial infection, unspecified; R39.15 Urgency of urination; A59.9 Trichomoniasis, unspecified
CPT/HCPCS: 81515; 87086; 87088; 87186; 87491; 87591; 99212

== ENCOUNTER → 2024-07-28 11:08 | Outpatient (AMB) | payer OTHER, SELFPAY ==
--- OUTSIDE RECORDS SUMMARY | 2024-07-28 12:03 | XMS_ITS | Clinical Summary ---
Author Organization [facility] Address [address] [place] [address] Care Team Providers Care Fertilizer Processing Supervisor Name Role Phone Miko Balderas MD Primary Care Provider [phone] Social History Tobacco Use Types Packs/Day Years [...] age to complete this topic Care Teams Fertilizer Processing Supervisor Relationship Specialty Start Date End Date Miko Balderas MD [address] [place] [address] PCP - General Internal Medicine 03/19/20
--- NOTE | 2024-07-28 13:31 | AM.OFFVISNUR ---
Vital Signs 07/28/24 14:41 Height 5 ft 4 in Weight 135 lb BMI 23.2 Intake Visit Reasons: DEPO, On Depo-Provera for contraception Rag Collector Required: No Allergies No Known Allergies [No Known Allergies*] Allergy (Verified 07/22/24 11:35) Is last menstrual period known: Yes (October 2023) Post menopausal: No Patient : No Do you need a note to return to daycare/school/sports/work: No Nursing Note Pt here at schedule apt time for Depo Provera injection. Patient had no complaints. Lot# [id number],exp-06/2026, [facility] # [id number] Janny, Triage Nurse Assessment & Plan Assessment & Plan (1) On Depo-Provera for contraception: Comment: Restarted Depo 08/27/2023, last injection 11/22/23. has Rx for 1yr. Code(s): Z30.42 - Encounter for surveillance of injectable contraceptive Category: Social Hx Orders: Orders AMB Medroxyprogesterone Injection Patient Supplied Today Z30.42 - Encounter for surveillance of injectable contraceptive Medications: New Depo-Provera (medroxyprogesterone) 150 mg IM ONCE 1 mL 0RF NS Z30.42 - Encounter for surveillance of injectable contraceptive Coding Level of Care Code Established Pt Est Pt Level 1 (78967) Patient Type Established Diagnoses On Depo-Provera for contraception Z30.42 Time Spent (min) 20
[2024-07-28 14:41] VITALS: BMI 23.2
--- NOTE | 2024-07-28 15:27 | MHC.OFFVIS ---
Vital Signs 07/28/24 14:41 Height 5 ft 4 in Weight 135 lb BMI 23.2 Intake Visit Reasons: DEPO Allergies No Known Allergies [No Known Allergies*] Allergy (Verified 07/22/24 11:35) PFSH Medical History No significant past medical history Surgical History Hx of section Family History Maternal Grandmother No problems noted. Maternal Grandfather Cancer Social History Household Members: Significant Other and Family Both parents involved: Yes Alcohol intake: never Substance Use Type: Marijuana Female Reproductive History Menstrual Age of Menarche: 12 Physical Exam Vital Signs: BMI result Body Mass Index 23.2 Office Procedures Depo Questionnaire If YES to any of the following questions, please consult a provider. Date of last injection: 05/07/24 Date of last gynecology exam: 07/22/24 Menstrual pattern since last injection has been: Not Applicable Irregular bleeding?: No Breast lumps or other breast changes?: No Changes in weight or appetite?: No Depression or changes in mood?: No Abnormal hair growth or loss?: No Skin problems (rash, acne, discoloration)?: No Pain at the injection site?: No Headaches?: No Nervousness?: No Abdominal pain or cramping?: No Dizziness or nausea?: No Fatigue or weakness?: No Decrease in sexual drive?: No Chest pain or shortness of breath?: No Swelling in arms or legs?: No Any other problems or concerns?: none Form completed by?: Janny Ha LPN Office Meds Depo-Provera 150 mg/mL intramuscular syringe Performing Provider: Glory Johns CNM [place] [facility] [place] [facility] Administered by: Janny Ha LPN on 07/28/24 15:28 Dose Route Admin Location Dispensed Lot Number Expiration Date [facility] Assistant Nurse Manager 150 mg IM rt deltoid 1 mL [id number] 06/28/26 89124-772-88 [facility] Assessment & Plan Assessment & Plan (1) On Depo-Provera for contraception: Comment: Restarted Depo 08/27/2023, last injection 11/22/23. has Rx for 1yr. Code(s): Z30.42 - Encounter for surveillance of injectable contraceptive Category: Social Hx Plan: pt here for scheduled depo provera. no problems . will schedule next injection in 12 weeks Orders: Orders AMB Medroxyprogesterone Injection Patient Supplied 07/28/24 Z30.42 - Encounter for surveillance of injectable contraceptive Coding Level of Care Code Established Pt Est Pt Level 1 (03282) Patient Type Established Medical Decision Making Straight Forward Diagnoses On Depo-Provera for contraception Z30.42 Time Spent (min) 20
== END ==
LOC: HO.HWS 11:09
PROVIDERS: Visit Provider Advanced Practice Midwife
DX: Z30.42 Encounter for surveillance of injectable contraceptive (principal)

== ENCOUNTER → 2024-07-28 11:08 | Outpatient (BNVA) | payer OTHER, SELFPAY | PROVIDERS: Visit Provider Advanced Practice Midwife | DX: Z30.42 Encounter for surveillance of injectable contraceptive (principal) | CPT/HCPCS: 96372; 99211; J1050 ==

== ENCOUNTER 2024-09-03 11:11 | Outpatient (AMB) | payer OTHER, SELFPAY ==
[2024-09-03 11:20] VITALS: BP 102/54; BMI 23.2
--- NOTE | 2024-09-03 11:20 | A.OFFVIS_ITS ---
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 History of recent chlamydia treated. Current Depo user, desires to continue. She denies any contraindications to control such as: migraines with aura, history of DVT or pulmonary emboli, high blood pressure, liver disease, thrombolic disorders, Lupus, +MALCOLM, or breast cancer. Currently is sexually active. She denies vaginal itching or irritation. STI screening offered; she accepts. She tries to eat healthy and stays active with exercise. Denies family history of breast, ovarian or colon cancer. Last pap smear 2022, negative. [facility] Medical History No significant past medical history Surgical History Hx of section Family History Maternal Grandmother No problems noted. Maternal Grandfather Cancer Social History Household Members: Significant Other and Family Both parents involved: Yes Alcohol intake: never Substance Use Type: Marijuana Female Reproductive History Menstrual Age of Menarche: 12 control method: progesterone injection (07/28/24) Date of last pap smear: 07/26/22 (neg) History of STI: Yes (05/14/24 & 07/22/24 +chlmydia) Review of Systems Const All systems reviewed & are unremarkable except as noted in HPI and below Reports as per HPI Eyes Reports no additional complaints ENT Reports no additional complaints Card Reports no additional complaints Resp Reports no additional complaints GI Reports as per HPI and Reports no additional complaints Reports as per HPI Musc Reports no additional complaints Skin/Breast Reports as per HPI Neuro Reports no additional complaints Psych Reports no additional complaints Endo Reports no additional complaints Darwin/Lymph Reports no additional complaints Aller/Immun Reports no additional complaints Physical Exam Vital Signs: Last Vital Signs BP 102/54 L 09/03/24 11:20 BMI result Body Mass Index 23.2 Const General: cooperative, healthy appearing, no acute distress, well developed and alert Orientation/consciousness: patient oriented x3 HEENT Head: Yes normal to inspection Eyes General: appearance normal, both eyes and all related structures Neck Neck: Yes normal visual inspection Thyroid: Thyroid normal Chest Chest palpation & inspection: normal inspection of the chest and other (no puckering, dimpling, peau de orange, retraction, discharge, masses) Breast/axilla inspection: normal inspection of the breasts Breast/axilla palpation: normal palpation of the breasts Resp Effort & Inspection: normal respiratory effort GI Inspection: Yes normal to inspection Palpation (GI): Soft to palpation Rectal Exam - Female: deferred General: Yes bladder normal to palpation External Female Exam: normal external appearance and normal appearance of the urethra Speculum Exam - Vagina: normal appearance of the vagina, normal palpation and abnormal vaginal discharge (Thick adherent) white Speculum Exam - Cervix: normal appearance of the cervix and normal palpation Bimanual exam- vagina & uterus: normal bimanual exam, normal palpation, uterine size normal, bladder normal to palpation, normal palpation and non-tender Bimanual Exam- Adnexa, other: no masses Skin General skin exam: no rashes or lesions noted Rashes: no rashes Neuro General: patient oriented x3 Cognition (Neuro): normal cognition Extrem General: Yes normal to inspection Psych Attitude: cooperative Thought process: Normal thought process present Assessment & Plan Assessment & Plan (1) Well woman exam with routine gynecological exam: Code(s): Z01.419 - Encounter for gynecological examination (general) (routine) without abnormal findings Category: Medical Plan: Discussed: Current recommendations for pap smears per ASCCP guidelines. Breast awareness and periodic breast exams. Has refills for Depo-Provera provided for the year with previous visit. Maintain a healthy lifestyle including a well balanced diet and routine exercise. Use condoms for STI and prevention. Patient verbalizes understanding and agrees to the plan of care. She was given opportunity to ask questions and all questions were answered to the best of my ability. 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 This note is constructed using voice recognition software. While every effort has been made to ensure accuracy, labeling specialist errors may have been included. (2) Chlamydia contact, treated: Code(s): Z20.2 - Contact with and (suspected) exposure to infections with a predominantly sexual mode of transmission Plan GC chlamydia and BV panel obtained. Await results for final plan of care. The patient expressed understanding and agreement with the plan of care. All of her questions and concerns were addressed to the best of my ability. Orders: Orders Bacterial Vaginosis Panel Today N89.8 - Other specified noninflammatory disorders of vagina CT NG by PCR Today N89.8 - Other specified noninflammatory disorders of vagina, Z20.2 - Contact with and (suspected) exposure to infections with a predominantly sexual mode of transmission, Z86.19 - Personal history of other infectious and parasitic diseases Medications: Refilled medroxyprogesterone (Depo-Provera) Start at the beginning of next menses then Q 12 weeks. 150 mg IM Q12W 1 mL 5RF Coding Level of Care Code Est Pt Prev Care 18-39y(55604) Diagnoses Well woman exam with routine gynecological exam Z01.419 Chlamydia contact, treated Z20.2
--- OUTSIDE RECORDS SUMMARY | 2024-09-03 13:00 | XMS_ITS | Clinical Summary ---
Author Organization [facility] it Address [address] [place] [address] Care Team Providers Care Crab Backer Name Role Phone Miko Balderas MD Primary Care Provider [phone] Social History Tobacco Use Types Packs/Day Years [...] age to complete this topic Care Teams Crab Backer Relationship Specialty Start Date End Date Miko Balderas MD [address] [place] [address] PCP - General Internal Medicine 03/19/20
== END 2024-09-03 12:03 | disposition home or self-care (01) ==
LOC: HO.HWS 11:12
PROVIDERS: Visit Provider Advanced Practice Midwife
DX: Z01.419 Encounter for gynecological examination (general) (routine) without abnormal findings (principal); Z20.2 Contact with and (suspected) exposure to infections with a predominantly sexual mode of transmission
CPT/HCPCS: 99395; 99459

== ENCOUNTER 2024-09-03 11:41 | Outpatient (REF) | payer OTHER, SELFPAY ==
[2024-09-03 13:11] LABS: Bacterial Vaginosis PCR POSITIVE (Negative); Candida Group PCR NOT DETECTED (Not Detect); Candida glab krusei PCR NOT DETECTED (Not Detect); Trichomonas vaginalis PCR NOT DETECTED (Not Detect)
[2024-09-03 13:44] LABS: CT PCR NOT DETECTED (Not Detect.); NG PCR NOT DETECTED (Not Detect.)
== END 2024-09-03 11:42 | disposition home or self-care (01) ==
LOC: HO.LAB 11:41
PROVIDERS: Visit Provider Advanced Practice Midwife
DX: Z01.419 Encounter for gynecological examination (general) (routine) without abnormal findings (principal); N89.8 Other specified noninflammatory disorders of vagina; Z86.19 Personal history of other infectious and parasitic diseases; Z20.2 Contact with and (suspected) exposure to infections with a predominantly sexual mode of transmission
CPT/HCPCS: 81515; 87491; 87591; 99395

== ENCOUNTER 2024-09-03 11:41 | Outpatient (REF) | payer OTHER, SELFPAY | END 2024-09-03 11:42 | disposition home or self-care (01) | LOC: HO.LNP 11:41 | PROVIDERS: Visit Provider Advanced Practice Midwife | DX: Z13.89 Encounter for screening for other disorder (principal) ==

== ENCOUNTER 2024-10-20 11:03 | Outpatient (AMB) | payer OTHER, SELFPAY ==
--- NOTE | 2024-10-20 11:16 | AM.OFFVISNUR ---
Vital Signs 10/20/24 11:23 Height 5 ft 4 in Weight 129 lb BMI 22.1 Intake Visit Reasons: DEPO Allergies No Known Allergies (No Known Allergies*) Allergy (Verified 09/03/24 11:20) Nursing Note Patient her for scheduled depo injection. Pt had no complaints. Patient to schedule next Injection in 12 weeks. Office Procedures Depo Questionnaire If YES to any of the following questions, please consult a provider. Date of last injection: 07/28/24 Date of last gynecology exam: 09/03/24 Menstrual pattern since last injection has been: Not Applicable Irregular bleeding?: No Breast lumps or other breast changes?: No Changes in weight or appetite?: No Depression or changes in mood?: No Abnormal hair growth or loss?: No Skin problems (rash, acne, discoloration)?: No Pain at the injection site?: No Headaches?: No Nervousness?: No Abdominal pain or cramping?: No Dizziness or nausea?: No Fatigue or weakness?: No Decrease in sexual drive?: No Chest pain or shortness of breath?: No Swelling in arms or legs?: No Any other problems or concerns?: none Form completed by?: Janny Ha LPN Office Meds Depo-Provera 150 mg/mL intramuscular syringe Performing Provider: Gloyr Johns CNM Performing Location: [facility] [place] [facility] Administered by: Janny Ha LPN on 10/20/24 11:16 Dose Route Admin Location Dispensed Lot Number Expiration Date [facility] Manager Transplant 150 mg IM left Deltoid 1 mL [id number] 08/15/25 55672-751-59 [employer] Total Dispensed Waste 1 mL 0 % Assessment & Plan Assessment & Plan Orders: Orders AMB Medroxyprogesterone Injection Patient Supplied Today Z30.42 - Encounter for surveillance of injectable contraceptive Coding Level of Care Code Established Pt Est Pt Level 1 (10254) Patient Type Established History Problem Focused Exam Problem Focused Medical Decision Making Straight Forward Time Spent (min) 20
[2024-10-20 11:23] VITALS: BMI 22.1
--- OUTSIDE RECORDS SUMMARY | 2024-10-20 12:03 | XMS_ITS | Clinical Summary ---
Author Organization [facility] it Address [address] [place] [address] Care Team Providers Care Head Of Product Name Role Phone Miko Balderas MD Primary Care Provider [phone] Social History Tobacco Use Types Packs/Day Years [...] Vaccine ( - 2023-2 5 season) 2023 Depression Screening 03/19/2024 Influenza Vaccine (#1) 2024 HIB Vaccines Aged Out No longer [...] 5 Years) and At-Risk Patients (6 to 49 Years) Aged Out No longer eligible b ased on patient's age to complete this topic RSV Immunization Patients Un juan jose 20 months Aged Out No longer eligible b ased on patient's age to complete this topic Varicella Vaccines Aged Out No longer eligible based on patient's age to complete this topic Care Teams Head Of Product Relationship Specialty Start Date End Date Miko Balderas MD [address] [place] [address] PCP - General Internal Medicine 03/19/20
== END 2024-10-20 11:14 | disposition home or self-care (01) ==
LOC: HO.HWS 11:03
PROVIDERS: Visit Provider Advanced Practice Midwife
DX: Z30.42 Encounter for surveillance of injectable contraceptive (principal)

== ENCOUNTER → 2024-10-20 11:03 | Outpatient (BNVA) | payer OTHER, SELFPAY | PROVIDERS: Visit Provider Advanced Practice Midwife | DX: Z30.013 Encounter for initial prescription of injectable contraceptive (principal) | CPT/HCPCS: 96372; 99211; J1050 ==

== ENCOUNTER 2024-12-23 13:49 | Outpatient (REF) | payer OTHER, SELFPAY ==
[2024-12-23 17:02] LABS: Bacterial Vaginosis PCR NEGATIVE (Negative); Candida Group PCR NOT DETECTED (Not Detect); Candida glab krusei PCR NOT DETECTED (Not Detect); Trichomonas vaginalis PCR NOT DETECTED (Not Detect)
[2024-12-23 17:34] LABS: CT PCR DETECTED (Not Detect.); NG PCR NOT DETECTED (Not Detect.)
== END 2024-12-23 13:50 | disposition home or self-care (01) ==
LOC: HO.LNP 13:49
PROVIDERS: Visit Provider Advanced Practice Midwife
DX: Z20.2 Contact with and (suspected) exposure to infections with a predominantly sexual mode of transmission (principal); Z11.3 Encounter for screening for infections with a predominantly sexual mode of transmission
CPT/HCPCS: 81515; 87491; 87591; 99212

== ENCOUNTER 2024-12-23 13:49 | Outpatient (AMB) | payer OTHER, SELFPAY ==
[2024-12-23 14:04] VITALS: BP 98/58; BMI 23.2
--- NOTE | 2024-12-23 14:04 | MHC.OFFVIS ---
Vital Signs 12/23/24 14:04 Height 5 ft 4 in Weight 135 lb 2 oz BMI 23.2 BP 98/58 L Blood Pressure Location Lt brachial Position Sitting Intake Visit Reasons: std testing Intake Note: possible exposure to STD's Health And Safety Instructor Required: No Allergies No Known Allergies (No Known Allergies*) Allergy (Verified 12/23/24 14:08) Medication List - Last Reconciled 12/23/24 by Michelle Mccann LPN medroxyprogesterone (Depo-Provera) 150 mg IM Q12W Is last menstrual period known: No Post menopausal: No Patient : No Do you need a note to return to daycare/school/sports/work: No HPI Comments Details: Patient is here today for STDs testing, she had heard something about her partner and wants to have all her labs and blood work today completed. She denies any pelvic pain, discharge, odors, irritation or urinary symptoms. Current Depo use, next step was 01/05/2025. [facility] Medical History No significant past medical history Surgical History Hx of section Family History Maternal Grandmother No problems noted. Maternal Grandfather Cancer Social History Household Members: Family Both parents involved: Yes Alcohol intake: never Substance Use Type: Marijuana Patient : No Female Reproductive History Menstrual Age of Menarche: 12 control method: progesterone injection Total pregnancies: 1 Full term: 1 Number of Living Children: 1 Review of Systems Const All systems reviewed & are unremarkable except as noted in HPI and below Physical Exam Vital Signs: Last Vital Signs BP 98/58 L 12/23/24 14:04 BMI result Body Mass Index 23.2 Const General: cooperative, healthy appearing and no acute distress Orientation/consciousness: patient oriented x3 GI Inspection: Yes normal to inspection Palpation (GI): Soft to palpation and Other GI palpation findings present (Nontender) Rectal Exam - Female: visual inspection normal General: Yes bladder normal to palpation External Female Exam: normal appearance of the urethra Speculum Exam - Vagina: normal appearance of the vagina, normal palpation and normal vaginal discharge Speculum Exam - Cervix: normal appearance of the cervix and normal palpation Bimanual exam- vagina & uterus: normal bimanual exam, normal palpation, uterine size normal, bladder normal to palpation, normal palpation, uterine shape normal and non-tender Bimanual Exam- Adnexa, other: normal adnexae Neuro General: patient oriented x3 Assessment & Plan Assessment & Plan (1) Possible exposure to STD: Code(s): Z20.2 - Contact with and (suspected) exposure to infections with a predominantly sexual mode of transmission Plan BV and GC chlamydia panel obtained await results for final plan of care. The patient expressed understanding and agreement with the plan of care. All of her questions and concerns were addressed to the best of my ability. This note is constructed using voice recognition software. While every effort has been made to ensure accuracy, apartment groundskeeper errors may have been included. Orders: Orders HIV Ab/Ag Today Z20.2 - Contact with and (suspected) exposure to infections with a predominantly sexual mode of transmission Hepatitis B Core Antibody Today Z20.2 - Contact with and (suspected) exposure to infections with a predominantly sexual mode of transmission Bacterial Vaginosis Panel Today Z11.3 - Encounter for screening for infections with a predominantly sexual mode of transmission Hepatitis C Antibody Reflex Today Z20.2 - Contact with and (suspected) exposure to infections with a predominantly sexual mode of transmission Syphilis Screen Today Z20.2 - Contact with and (suspected) exposure to infections with a predominantly sexual mode of transmission CT NG by PCR Vag/Cerv Today Z11.3 - Encounter for screening for infections with a predominantly sexual mode of transmission Coding Level of Care Code Est Pt Level 3 (62185) Diagnoses Possible exposure to STD Z20.2
--- OUTSIDE RECORDS SUMMARY | 2024-12-23 17:02 | XMS_ITS | Clinical Summary ---
Author Organization [facility] ity Address [address] [place] [address] Care Team Providers Care Soap Mixer Name Role Phone Miko Balderas MD Primary Care Provider [phone] Social History Tobacco Use Types Packs/Day Years [...] Cervical Cancer Screening: P ap Smear 2021 Depression Screening 03/19/2024 COVID-19 Vaccine ( - 2023-2 5 season) 2024 Influenza Vaccine (#1) 2024 RSV Immunization Adult Patie nts (1 - 1-dose 75+ series) 06/28/2075 HIB Vaccines Aged Out No longer eligi [...] age to complete this topic Care Teams Soap Mixer Relationship Specialty Start Date End Date Miko Balderas MD PCP - General Internal Medicine 03/19/20
== END 2024-12-23 14:39 | disposition home or self-care (01) ==
LOC: HO.HWS 13:49
PROVIDERS: Visit Provider Advanced Practice Midwife
DX: Z20.2 Contact with and (suspected) exposure to infections with a predominantly sexual mode of transmission (principal)
CPT/HCPCS: 99213

== ENCOUNTER 2024-12-23 14:40 | Outpatient (REF) | payer OTHER, SELFPAY ==
[2024-12-24 08:00] LABS: Syphilis Screen Nonreactive (Nonreactive)
[2024-12-24 08:36] LABS: HBc Num1 0.04 S/CO (0.00-0.79); HIV Num 1 0.05 S/CO (0.00-0.99); ~HepC Num1 0.06 S/CO (0.00-0.79); ~Hepatitis C Antibody Nonreactive (Nonreactive)
== END 2024-12-23 14:41 | disposition home or self-care (01) ==
LOC: HO.LAB 14:40
PROVIDERS: Advanced Practice Midwife; Visit Provider Advanced Practice Midwife
DX: Z01.84 Encounter for antibody response examination (principal); Z11.59 Encounter for screening for other viral diseases; Z11.4 Encounter for screening for human immunodeficiency virus [HIV]; Z20.2 Contact with and (suspected) exposure to infections with a predominantly sexual mode of transmission
CPT/HCPCS: 36415; 86704; 86780; 86803; 87389

== ENCOUNTER 2025-01-05 11:15 | Outpatient (AMB) | payer OTHER, SELFPAY ==
--- NOTE | 2025-01-05 11:26 | AM.OFFVISNUR ---
Vital Signs 01/05/25 11:27 Height 5 ft 4 in Weight 137 lb 4 oz BMI 23.6 Intake Visit Reasons: depo Allergies No Known Allergies (No Known Allergies*) Allergy (Verified 12/23/24 14:08) Nursing Note Tess is here today for her scheduled depo-Provera inj. She denies any problems or concerns. Follow up in 12 weeks for next inj. Pt tolerated well. Office Procedures Depo Questionnaire If YES to any of the following questions, please consult a provider. Date of last injection: 10/20/24 Date of last gynecology exam: 09/03/24 Menstrual pattern since last injection has been: Not Applicable Irregular bleeding?: No Breast lumps or other breast changes?: No Changes in weight or appetite?: Yes (weight gain, which pt is happy about.) Depression or changes in mood?: No Abnormal hair growth or loss?: No Skin problems (rash, acne, discoloration)?: No Pain at the injection site?: No Headaches?: No Nervousness?: No Abdominal pain or cramping?: No Dizziness or nausea?: No Fatigue or weakness?: No Decrease in sexual drive?: No Chest pain or shortness of breath?: No Swelling in arms or legs?: No Any other problems or concerns?: None voiced Form completed by?: Ajith Mccann LPN Office Meds Depo-Provera 150 mg/mL intramuscular syringe Performing Provider: Janel Gray CNM Performing Location[place] [facility] [place] [facility] Administered by: Michelle Mccann LPN on 01/05/25 11:27 Dose Route Admin Location Dispensed Lot Number Expiration Date [facility] Gas Stove Servicer Helper 150 mg IM left deltoid 1 mL [id number] 03/18/27 34080-783-70 [facility] Total Dispensed Waste 1 mL 0 % Assessment & Plan Assessment & Plan Orders: Orders AMB Medroxyprogesterone Injection Patient Supplied Today Z30.42 - Encounter for surveillance of injectable contraceptive Coding Level of Care Code Established Pt Est Pt Level 1 (79062) Patient Type Established History Problem Focused Exam Problem Focused Medical Decision Making Straight Forward Time Spent (min) 20
[2025-01-05 11:27] VITALS: BMI 23.6
--- OUTSIDE RECORDS SUMMARY | 2025-01-05 13:49 | XMS_ITS | Clinical Summary ---
Author Organization [facility] ity Address [address] [place] [address] Care Team Providers Care Strap Stitcher Name Role Phone Miko Balderas MD Primary Care Provider [phone] Social History Tobacco Use Types Packs/Day Years [...] age to complete this topic Care Teams Strap Stitcher Relationship Specialty Start Date End Date Miko Balderas MD PCP - General Internal Medicine 03/19/20
== END 2025-01-05 11:25 | disposition home or self-care (01) ==
PROVIDERS: Visit Provider Advanced Practice Midwife
DX: Z30.42 Encounter for surveillance of injectable contraceptive (principal)

== ENCOUNTER → 2025-01-05 11:15 | Outpatient (BNVA) | payer OTHER, SELFPAY | PROVIDERS: Visit Provider Advanced Practice Midwife | DX: Z30.42 Encounter for surveillance of injectable contraceptive (principal) | CPT/HCPCS: 96372; 99211; J1050 ==